=== PATIENT | female | born 1990 | race American Indian/Alaskan Native ===

== ENCOUNTER 2017-12-17 19:49 | Emergency (ER) | payer MEDICAID, OTHER ==
[2017-12-17 20:53] LABS: Basophils # (Auto) 0.1 K/mm3 (0.0-0.1); Basophils % (Auto) 0.7 % (0.0-1.8); Eosinophils # (Auto) 0.1 K/mm3 (0.0-0.4); Eosinophils % (Auto) 1.6 % (0.0-4.3); Hematocrit 37.1 % (30.3-42.9); Hemoglobin 12.2 gm/dl (10.1-14.3); Lymphocytes # (Auto) 2.3 K/mm3 (1.2-5.4); Lymphocytes % (Auto) 25.8 % (13.4-35.0); Mean Corpuscular HGB Conc 33 % (30-34); Mean Corpuscular Hemoglobin 29 pg (28-32); Mean Corpuscular Volume 87 fl (79-97); Monocytes # (Auto) 0.7 K/mm3 (0.0-0.8); Monocytes % (Auto) 8.1 % (0.0-7.3); Platelet Count 285 K/mm3 (140-440); Red Blood Count 4.27 M/mm3 (3.65-5.03); Red Cell Distribution Width 12.9 % (13.2-15.2)
[2017-12-17 21:08] LABS: Alanine Aminotransferase 12 units/L (7-56); Albumin 3.6 g/dL (3.9-5); BUN/Creatinine Ratio 12; Blood Urea Nitrogen 6 mg/dL (7-17); Calcium 8.8 mg/dL (8.4-10.2); Hemolysis Index 3
[2017-12-17 21:35] LABS: Bilirubin,Urine NEG (Negative); Blood,Urine MOD (Negative); Color,Urine Yellow (Yellow); Mucus,Urine FEW /HPF; Nitrite,Urine NEG (Negative); Protein,Urine <15 mg/dL mg/dL (Negative)
[2017-12-17] MEDS ORDERED: TYLENOL PO ONE (23:21)
--- NOTE | 2017-12-17 23:30 | Emergency Department Report ---
HPI - General Chief Complaint: Abdominal Pain Time Seen by Provider: 12/17/17 23:16 - HPI HPI: Room 4 The patient is a 27-year-old female presenting with a chief complaint lower abdominal pain. The patient states she is approximately 8 weeks and has not yet had an ultrasound for this . The patient states 2 days ago she developed pain in the lower abdomen/pelvis there is been constant. Patient states the pain worsened last night and was advised to come to the emergency department for evaluation. Patient states the pain is worse on the right. Patient denies vaginal bleeding, fever, dysuria or hematuria. Patient denies anorexia Location: [See above] Duration: 3 days Quality: Pain Severity: Moderate Modifying factors: [see above] Context: [see above] Mode of transportation: [not driving] ED Past Medical Hx - Past Medical History Previous Medical History?: No - Surgical History Past Surgical History?: No - Family History Family history: no significant - Social History Smoking Status: Never Smoker Substance Use Type: None (denies illicit drug use), Alcohol (occasional) - Medications Home Medications: Home Medications Medication Instructions Recorded Confirmed Last Taken Type Ferrous Sulfate [Feosol 325 MG tab] 325 mg PO BID #60 tablet 02/16/14 Unknown Rx Ibuprofen [Motrin 600 MG tab] 800 mg PO Q6H PRN #30 tablet 02/16/14 Unknown Rx Prenat 115/Iron Fum/Folic/Dss 1 each PO DAILY #30 tablet 02/16/14 Unknown Rx [ 19 Tablet] ED Review of Systems ROS: Stated complaint: ABD PAIN; 8WKS GEST Other details as noted in HPI Constitutional: denies: fever Gastrointestinal: abdominal pain Genitourinary: denies: dysuria, hematuria, abnormal menses Physical Exam - Physical Exam Vital Signs: Vital Signs 12/17/17 12/17/17 20:31 23:19 Temperature 98.9 F 98.6 F Pulse Rate 70 75 Respiratory 18 17 Rate Blood Pressure 133/75 Blood Pressure 123/88 [Left] O2 Sat by Pulse 100 99 Oximetry Physical Exam: GENERAL: The patient is well-developed well-nourished female lying on stretcher not appearing to be in acute distress. [] HEENT: Normocephalic. Atraumatic. Extraocular motions are intact. Patient has moist mucous membranes. NECK: Supple. Trachea midline CHEST/LUNGS: Clear to auscultation. There is no respiratory distress noted. HEART/CARDIOVASCULAR: Regular. There is no tachycardia. There is no gallop rub or murmur. ABDOMEN: Abdomen is soft, with discomfort to palpation in the right lower quadrant, suprapubic and left lower quadrant. Patient has normal bowel sounds. There is no abdominal distention. SKIN: There is no rash. There is no edema. There is no diaphoresis. NEURO: The patient is awake, alert, and oriented. The patient is cooperative. The patient has normal speech MUSCULOSKELETAL: There is no evidence of acute injury. ED Course Vital Signs 12/17/17 12/17/17 20:31 23:19 Temperature 98.9 F 98.6 F Pulse Rate 70 75 Respiratory 18 17 Rate Blood Pressure 133/75 Blood Pressure 123/88 [Left] O2 Sat by Pulse 100 99 Oximetry ED Medical Decision Making - Lab Data Result diagrams: 12/17/17 20:45 12/17/17 20:45 Laboratory Tests 12/17/17 12/17/17 12/17/17 20:44 20:45 20:45 WBC 8.8 RBC 4.27 Hgb 12.2 Hct 37.1 MCV 87 MCH 29 MCHC 33 RDW 12.9 L Plt Count 285 Lymph % (Auto) 25.8 [place] % (Auto) 8.1 H Eos % (Auto) 1.6 Baso % (Auto) 0.7 Lymph # 2.3 [place] # 0.7 Eos # 0.1 Baso # 0.1 Seg Neutrophils % 63.8 Seg Neutrophils # 5.6 Sodium 137 Potassium 4.0 Chloride 101.9 Carbon Dioxide 22 Anion Gap 17 BUN 6 L Creatinine 0.5 L Estimated GFR > 60 BUN/Creatinine Ratio 12 Glucose 76 Calcium 8.8 Total Bilirubin < 0.20 AST 12 ALT 12 Alkaline Phosphatase 43 Total Protein 7.2 Albumin 3.6 L Albumin/Globulin Ratio 1.0 HCG, Quant 49654 H Urine Color Urine Turbidity Urine pH Ur Specific [place] Urine Protein Urine Glucose (UA) Urine Ketones Urine Blood Urine Nitrite Urine Bilirubin Urine Urobilinogen Ur Leukocyte Esterase Urine WBC (Auto) Urine RBC (Auto) U Epithel Cells (Auto) Urine Mucus 12/17/17 21:12 WBC RBC Hgb Hct MCV MCH MCHC RDW Plt Count Lymph % (Auto) [place] % (Auto) Eos % (Auto) Baso % (Auto) Lymph # [place] # Eos # Baso # Seg Neutrophils % Seg Neutrophils # Sodium Potassium Chloride Carbon Dioxide Anion Gap BUN Creatinine Estimated GFR BUN/Creatinine Ratio Glucose Calcium Total Bilirubin AST ALT Alkaline Phosphatase Total Protein Albumin Albumin/Globulin Ratio HCG, Quant Urine Color Yellow Urine Turbidity Clear Urine pH 5.0 Ur Specific [place] 1.026 Urine Protein <15 mg/dl Urine Glucose (UA) Neg Urine Ketones Neg Urine Blood Mod Urine Nitrite Neg Urine Bilirubin Neg Urine Urobilinogen 2.0 Ur Leukocyte Esterase Neg Urine WBC (Auto) 2.0 Urine RBC (Auto) 7.0 U Epithel Cells (Auto) < 1.0 Urine Mucus Few - Radiology Data Radiology results: report reviewed (pelvic ultrasound), image reviewed (pelvic ultrasound) FINAL REPORT PROCEDURE: US OB TRANSVAGINAL TECHNIQUE: Real-time transvaginal sonography of the uterus, placenta, amniotic fluid, adnexa, and fetus was performed with image documentation. Measurements were obtained to determine age/size. M-mode Doppler was used to document heartbeat. CPT 59186 HISTORY: COMPARISON: No prior studies are available for comparison. FINDINGS: CRL: 14.1mm, which corresponds to a gestational age of: 7weeks, 5 days. Yolk Sac: Normal. Embryonic Cardiac Activity: 151 beats per minute Gestational Sac: Normal. There is a subchorionic hematoma measuring 6 x 11 x 9 millimeters. Right Ovary: Normal. Left Ovary: There is a complex cyst measuring 6.1 centimeters. There is a simple cyst measuring 2.9 centimeters. Estimated delivery date: 07/31/2018 Comment: Complete anatomic survey at 18-20 weeks suggested. IMPRESSION: 1. Single living intrauterine gestation at approximately 7 weeks and 5 days 2. EDC by US 07/31/2018. 3. There is a complex possibly hemorrhagic corpus luteal cyst in the left ovary measuring 6.1 centimeters. 4. There is a subchorionic hematoma measuring 6 x 11 x 9 millimeters. Transcribed By: CO Dictated By: BRENTON DAVENPORT MD Electronically Authenticated By: BRENTON DAVENPORT MD Signed Date/Time: 12/17/172117 DD/ 17 TD/TT: 12/17/172117 - Differential Diagnosis ectopic , threatened , UTI, round ligament pain Critical care attestation.: If time is entered above; I have spent that time in minutes in the direct care of this critically ill patient, excluding procedure time. ED Disposition Clinical Impression: Abdominal pain, Ovarian cyst, Subchorionic hematoma in first trimester Disposition: TO HOME OR SELFCARE Is pt being admited?: No Does the pt Need Aspirin: No Condition: Stable Instructions: Abdominal Pain (ED) Additional Instructions: Return to the emergency department immediately should you develop worsening symptoms, fever, inability to tolerate food or liquid or any other concerns. Referrals: [facility] [Primary Care Provider] - 3-5 Days [facility] [place] [Provider Group] - 3-5 Days Time of Disposition: 01:26
--- NOTE | 2017-12-18 01:22 | Ultrasound Report ---
FINAL REPORT PROCEDURE: US OB TRANSVAGINAL TECHNIQUE: Real-time transvaginal sonography of the uterus, placenta, amniotic fluid, adnexa, and fetus was performed with image documentation. Measurements were obtained to determine age/size. M-mode Doppler was used to document heartbeat. CPT 15623 HISTORY: COMPARISON: No prior studies are available for comparison. FINDINGS: CRL: 14.1mm, which corresponds to a gestational age of: 7weeks, 5 days. Yolk Sac: Normal. Embryonic Cardiac Activity: 151 beats per minute Gestational Sac: Normal. There is a subchorionic hematoma measuring 6 x 11 x 9 millimeters. Right Ovary: Normal. Left Ovary: There is a complex cyst measuring 6.1 centimeters. There is a simple cyst measuring 2.9 centimeters. Estimated delivery date: 07/31/2018 Comment: Complete anatomic survey at 18-20 weeks suggested. IMPRESSION: 1. Single living intrauterine gestation at approximately 7 weeks and 5 days 2. EDC by US 07/31/2018. 3. There is a complex possibly hemorrhagic corpus luteal cyst in the left ovary measuring 6.1 centimeters. 4. There is a subchorionic hematoma measuring 6 x 11 x 9 millimeters.
--- NOTE | 2017-12-18 01:28 | Ultrasound Report ---
FINAL REPORT PROCEDURE: US OB TRANSVAGINAL TECHNIQUE: Real-time transvaginal sonography of the uterus, placenta, amniotic fluid, adnexa, and fetus was performed with image documentation. Measurements were obtained to determine age/size. M-mode Doppler was used to document heartbeat. CPT 46957 HISTORY: COMPARISON: No prior studies are available for comparison. FINDINGS: FETUS B : CRL: 15.6mm, which corresponds to a gestational age of: 7weeks, 5 days. Yolk Sac: Normal. Embryonic Cardiac Activity: 160 beats per minute. Gestational Sac: Normal. There is a subchorionic hematoma measuring 6 x 11 x 9 millimeters. Right Ovary: Normal. Left Ovary: There is a complex cyst measuring 6.1 centimeters. There is a simple cyst measuring 2.9 centimeters. Estimated delivery date: 07/31/2018 Comment: Complete anatomic survey at 18-20 weeks suggested. IMPRESSION: 1. VIABLE intrauterine gestation at approximately 7 weeks and 5 days. THIS IS FETUS B OF A TWIN GESTATION. 2. EDC by US 07/31/2018. 3. There is a complex possibly hemorrhagic corpus luteal cyst in the left ovary measuring 6.1 centimeters. 4. There is a subchorionic hematoma measuring 6 x 11 x 9 millimeters.
--- NOTE | 2017-12-18 01:29 | Ultrasound Report ---
FINAL REPORT PROCEDURE: US OB LESS THAN 14 WEEKS TECHNIQUE: Real-time transabdominal sonography of the uterus, placenta, amniotic fluid, adnexa, and fetus was performed with image documentation. Measurements were obtained to determine age/size. M-mode Doppler was used to document heartbeat. HISTORY: COMPARISON: No prior studies are available for comparison. FINDINGS: CRL: 14.1mm, which corresponds to a gestational age of: 7weeks, 5 days. Yolk Sac: Normal. Embryonic Cardiac Activity: 151 beats per minute Gestational Sac: Normal. There is a subchorionic hematoma measuring 6 x 11 x 9 millimeters. Right Ovary: Normal. Left Ovary: There is a complex cyst measuring 6.1 centimeters. There is a simple cyst measuring 2.9 centimeters. Estimated delivery date: 07/31/2018 Comment: Complete anatomic survey at 18-20 weeks suggested. IMPRESSION: 1. Viable intrauterine gestation at approximately 7 weeks and 5 days. This is fetus A of a twin gestation. 2. EDC by US 07/31/2018. 3. There is a complex possibly hemorrhagic corpus luteal cyst in the left ovary measuring 6.1 centimeters. 4. There is a subchorionic hematoma measuring 6 x 11 x 9 millimeters.
[2017-12-18 01:30] VITALS: BP 118/76
== END 2017-12-18 01:38 | disposition home or self-care (01) ==
LOC: ED 19:49
DX: O26.891 Other specified pregnancy related conditions, first trimester (principal); Z3A.01 Less than 8 weeks gestation of pregnancy
CPT/HCPCS: 36415; 76801; 76802; 76817; 80053; 81001; 84702; 85025

== ENCOUNTER 2018-05-09 09:22 | Inpatient (IN) | payer MEDICAID ==
[2018-05-09] MEDS ORDERED: LACTATED RINGERS 500 ML IV ONE (09:37)
--- NOTE | 2018-05-09 11:23 | Ultrasound Report ---
FINAL REPORT EXAM: US OB > = 14 WK FETUS ADD GEST HISTORY: Bleeding, one demise twin TECHNIQUE: Transabdominal OB ultrasound. PRIORS: Earliest OB ultrasound December 17, 2017. FINDINGS: Twin intrauterine pregnancies. TWIN A: Intrauterine dates 20.4 weeks. JOSE equals September 22, 2018. EFW equals 431 g. BPD: 19.2 weeks. HC: 18.6 weeks. AC: 21.3 weeks. FL: 22.5 weeks. HC/AC ratio: 0.99 Cephalic index: 81.3. Within normal limits. Presentation: Left transverse. Placenta: Anterior. Grade 2. No previa. heart rate: No heart tones. Amniotic fluid index: Largest vertical pocket is 3.9 cm. Closed cervix measures 2.4 cm. TWIN B: Intrauterine dates 30.3 weeks. JOSE equals July 15, 2018. This is 16 days older compared to the prior ultrasound and is within normal limits for a 3rd trimester ultrasound. EFW equals 1496 g. BPD: 30.5 weeks. HC: 30.6 weeks. AC: 28.4 weeks. FL: 31.5 weeks. HC/AC ratio: 1.16 Cephalic index: 78.4. Within normal limits. Presentation: Cephalic. Placenta: Anterior. Grade 1. No previa. heart rate: 147 BPM. Amniotic fluid index: Largest vertical pocket is 7.1 cm. Closed cervix measures 2.4 cm. Visualized cord plexus, cisterna magnum, cerebellum, lateral ventricles, stomach, kidneys, bladder, diaphragm, four-chamber heart, and three-vessel cord is within normal limits. IMPRESSION: demise of twin A. Live of twin B.
[2018-05-09] MEDS ORDERED: SUDAFED PO PRN (12:26)
[2018-05-09] MEDS ORDERED: ZOFRAN IV PRN (12:26)
[2018-05-09] MEDS ORDERED: BENADRYL PO PRN (12:26)
[2018-05-09] MEDS ORDERED: MYLICON PO PRN (12:26)
[2018-05-09] MEDS ORDERED: TYLENOL PO PRN (12:26)
[2018-05-09] MEDS ORDERED: ALUM-MAG HYDROX-SIMETH 200-200-20MG/5ML PO PRN (12:26)
[2018-05-09] MEDS ORDERED: MILK OF MAGNESIA PO PRN (12:26)
[2018-05-09] MEDS ORDERED: COLACE PO PRN (12:26)
[2018-05-09] MEDS ORDERED: MAGNESIUM SULFATE 4GM/100ML 4 GM/100 ML BAG IV ONE (13:00)
[2018-05-09] MEDS ORDERED: CELESTONE SOLUSPAN IM SCH (13:00)
[2018-05-09] MEDS: LACTATED RINGERS 1,000 ML IV SCH ×2 (14:25→22:50)
[2018-05-09] MEDS: MAGNESIUM SULFATE 40GM/1000ML 40 GM/1,000 ML BAG IV SCH (14:46)
--- NOTE | 2018-05-09 15:16 | History and Physical Report ---
History of Present Illness Date of examination: 05/09/18 Date of admission: 05/09/18 13:41 Chief complaint: Vaginal spotting History of present illness: This is a 27 year-old female. She was diagnosed with IUFD of twin A (female on 04/13/18) two days prior to her first office visit. She has had no complaints until today when she call stating she's notice a brown discharge yesterday that became increasingly worse through out the day and this am. US confirmed today confirms IUFD twin A however CL today 2.4cm today. She was evaluated at [facility] on 04/22/2018, at that time her CL was 3.74cm. She's admitted now for Celestone administration and MGSO4 for possible PTL Past History : 4 Term Births: 3 Premature Births: 0 Living Children: 3 Para: 2 Mult. Births: 0 Prev : 0 Prev. attempt? 0 Aborta: 0 Elect. Ab: 0 Spont. Ab: 0 Ectopics: 0 # 1 Delivery date: 10/06/2008 Weeks Gestation: 40 labor: no Delivery type: Anesthesia type: epidural Delivery location: [facility] Infant Sex: Male weight: 8-0 # 2 Delivery date: 2011 Weeks Gestation: 40 Delivery type: Delivery location: [facility] Infant Sex: Female weight: 7-4 # 3 Delivery date: 02/15/2014 Weeks Gestation: 38.5 Delivery type: Vaginal Anesthesia type: none Delivery location: [facility] Sex: female weight: 7.69 Comments: none Past Medical History: Reviewed history from 11/28/2011 and no changes required: no hx of dvt while taking ocp Negative Past Medical History Past Surgical History: Reviewed history from 12/20/2008 and no changes required: negative Past Medical History Abnormal PAP: negative EMILIANA Exposure: negative Infertility: negative Uterine Anomaly: negative Uterine Surgery (not C/S): negative Other Gynecologic Problems: negative Social Hx: Patient is single non smoker Infection History Hx of STD: none Varicella/Chicken Pox Status: Previous Disease Genetic History Congenital Heart Defect: Mom: no Dad: no Aurelia Disease: Mom: no Dad: no Thalassemia Mom: no Dad: no Neural Tube Defect Mom: no Dad: no Down's Syndrome Mom: no Dad: no Ermias-Sachs Mom: no Dad: no Sickle Cell Disease/Trait Mom: no Dad: no Hemophilia Mom: no Dad: no Muscular Dystrophy Mom: no Dad: no Cystic Fibrosis Mom: no Dad: no Aye Chorea Mom: no Dad: no Mental Retardation Mom: no Dad: no Fragile X Mom: no Dad: no Other Genetic/Chromosomal Disorder Mom: no Dad: no Child w/other defect Mom: no Dad: no Enviromental Exposures Xray Exposure: no Medication, drug, or alcohol use since LMP: no Chemical/Other Exposure: no Exposure to Cat Liter: no Hx of Parvovirus (Fifth Disease): no Occupational Exposure to Children: none Active Medications (reviewed today): PROMETHAZINE HCL 12.5 MG ORAL TABLET (PROMETHAZINE HCL) 1 tab PO q 6 hrs prn nausea SELECT-OB 29-1 MG ORAL TABLET CHEWABLE ( VIT-FE PSAC CMPLX-FA) 1 tab PO q daily PRE-MITCH TABS ( [id number]) T1 PO QD ZOFRAN ODT 8 MG ORAL TABLET DISINTEGRATING (ONDANSETRON) 1 po q12hrs prn Current Allergies (reviewed today): * NKDA (Critical) Past History - Obstetrical History Expected Date of Delivery: 08/02/18 Actual Gestation: 27 Week(s) 6 Day(s) : 4 Medications and Allergies Allergies Allergy/AdvReac Type Severity Reaction Status Date / Time No Known Allergies Allergy Verified 02/15/14 06:06 Home Medications Medication Instructions Recorded Confirmed Last Taken Type Ferrous Sulfate [Feosol 325 MG tab] 325 mg PO BID #60 tablet 02/16/14 Unknown Rx Ibuprofen [Motrin 600 MG tab] 800 mg PO Q6H PRN #30 tablet 02/16/14 Unknown Rx Prenat 115/Iron Fum/Folic/Dss 1 each PO DAILY #30 tablet 02/16/14 Unknown Rx [ 19 Tablet] Active Meds: Active Medications Acetaminophen (Tylenol) 650 mg PO Q6H PRN PRN Reason: Pain MILD(1-3)/Fever >100.5/FREITAS Al Hydrox/Mg Hydrox/Simethicone (Alum-Mag Hydrox-Simeth [phone]/5ml) 30 ml PO Q6H PRN PRN Reason: Indigestion Betamethasone Acet/Betameth SodPhos (Celestone Soluspan) 12 mg IM Q24H TIM Stop: 07/15/18 13:01 Last Admin: 05/09/18 14:28 Dose: 12 mg Diphenhydramine HCl (Benadryl) 25 mg PO Q6H PRN PRN Reason: Itching Docusate Sodium (Colace) 100 mg PO Q12H PRN PRN Reason: Constipation Lactated Ringer's (Lactated Ringers) 1,000 mls @ 125 mls/hr IV DIRECT TIM Last Admin: 05/09/18 14:25 Dose: 125 mls/hr Magnesium Sulfate (Magnesium Sulfate 40gm/1000ml) 40 gm in 1,000 mls @ 50 mls/ hr IV DIRECT TIM Last Admin: 05/09/18 14:46 Dose: 2 gm/hr, 50 mls/hr Magnesium Hydroxide (Milk Of Magnesia) 30 ml PO QHS PRN PRN Reason: Laxative Effect Multivitamins/Iron/Calcium ( Vitamin) 1 each PO QDAY TIM Ondansetron HCl (Zofran) 4 mg IV Q6H PRN PRN Reason: Nausea And Vomiting Pseudoephedrine HCl (Sudafed) 30 mg PO Q4H PRN PRN Reason: Nasal Congestion Simethicone (Mylicon) 80 mg PO Q6H PRN PRN Reason: Gas pain Zolpidem Tartrate (Ambien) 5 mg PO ONCE ONE Stop: 05/09/18 22:01 Review of Systems All systems: negative Genitourinary: vaginal bleeding, vaginal discharge - Vital Signs Vital signs: Vital Signs Pulse BP 84 113/72 05/09/18 10:54 05/09/18 10:54 Temp Pulse Resp BP Pulse Ox 98.2 F 86 16 109/59 05/09/18 14:29 05/09/18 15:15 05/09/18 14:29 05/09/18 15:15 - Physical Exam Breasts: Positive: deferred Lungs: Positive: Normal air movement Abdomen: Positive: normal appearance, soft. Negative: tenderness - Obstetrical FHR: category 1 Results All other labs normal. Ultrasound: report reviewed Assessment and Plan - Patient Problems (1) 27 weeks gestation of Current Visit: Yes Status: Acute (2) Twin dichorionic diamniotic placenta Current Visit: Yes Status: Acute Plan to address problem: IUFD twin A (3) Cervical shortening Current Visit: Yes Status: Acute Qualifiers: Trimester: third trimester Qualified Code(s): O26.873 - Cervical shortening , third trimester Plan to address problem: Will proceed with Celestone and MgSO4. Plan of care discussed, questions encouraged and answered, she voiced understanding and agrees with plan of care
[2018-05-09 17:35] LABS: Hematocrit 35.5 % (30.3-42.9); Hemoglobin 11.8 gm/dl (10.1-14.3); Mean Corpuscular HGB Conc 33 % (30-34); Mean Corpuscular Hemoglobin 29 pg (28-32); Mean Corpuscular Volume 87 fl (79-97); Platelet Count 245 K/mm3 (140-440); Red Blood Count 4.09 M/mm3 (3.65-5.03); Red Cell Distribution Width 13.6 % (13.2-15.2)
[2018-05-09] MEDS ORDERED: AMBIEN PO ONE (22:00)
--- NOTE | 2018-05-10 08:59 | Progress Note ---
Assessment and Plan Complete celestone course, 2nd dose due at 1400 D/c MgSO4 ~24hours after last Celestone dose Plan of care extensively discussed with patient and her . Questions encouraged and answered. They both voiced understanding and agrees with plan - Patient Problems (1) 28 weeks gestation of Current Visit: Yes Status: Acute (2) Twin dichorionic diamniotic placenta Current Visit: Yes Status: Acute (3) Cervical shortening Current Visit: Yes Status: Acute Qualifiers: Trimester: third trimester Qualified Code(s): O26.873 - Cervical shortening , third trimester (4) Vaginal bleeding during , antepartum Current Visit: Yes Status: Acute Subjective - Subjective Date of service: 05/10/18 Principal diagnosis: IUP@28weeks,short cervix, twin gestation, IUFD twin A Interval history: Doing well, still with slight brown discharge, occasional contraction Patient reports: movement normal, contractions, no loss of fluid Objective - Vital Signs Vital Signs: Vital Signs - 12hr 05/09/18 05/09/18 05/09/18 21:00 21:05 21:10 Temperature Pulse Rate 75 78 74 Respiratory Rate Blood Pressure 115/63 Blood Pressure [Right] O2 Sat by Pulse 100 100 100 Oximetry 05/09/18 05/09/18 05/09/18 21:15 21:20 21:25 Temperature Pulse Rate 76 75 79 Respiratory Rate Blood Pressure 110/70 Blood Pressure [Right] O2 Sat by Pulse 98 99 99 Oximetry 05/09/18 05/09/18 05/09/18 21:30 21:35 21:40 Temperature Pulse Rate 86 79 99 H Respiratory Rate Blood Pressure 114/72 Blood Pressure [Right] O2 Sat by Pulse 100 100 98 Oximetry 05/09/18 05/09/18 05/09/18 21:45 21:46 21:50 Temperature Pulse Rate 102 H 88 90 Respiratory Rate Blood Pressure 126/71 Blood Pressure [Right] O2 Sat by Pulse 100 100 Oximetry 05/09/18 05/09/18 05/09/18 21:55 22:00 22:05 Temperature Pulse Rate 92 H 82 81 Respiratory Rate Blood Pressure 115/63 Blood Pressure [Right] O2 Sat by Pulse 100 98 99 Oximetry 05/09/18 05/09/18 05/09/18 22:10 22:15 22:16 Temperature Pulse Rate 92 H 78 85 Respiratory Rate Blood Pressure 117/67 Blood Pressure [Right] O2 Sat by Pulse 99 98 Oximetry 05/09/18 05/09/18 05/09/18 22:20 22:25 22:30 Temperature Pulse Rate 85 88 75 Respiratory Rate Blood Pressure 110/62 Blood Pressure [Right] O2 Sat by Pulse 98 99 0 L Oximetry 05/09/18 05/09/18 05/09/18 22:35 22:40 22:45 Temperature Pulse Rate 75 86 74 Respiratory Rate Blood Pressure 118/72 Blood Pressure [Right] O2 Sat by Pulse 100 99 100 Oximetry 05/09/18 05/09/18 05/09/18 22:50 22:55 23:00 Temperature 98.3 F Pulse Rate 79 84 76 Respiratory 18 Rate Blood Pressure 116/68 Blood Pressure 103/57 [Right] O2 Sat by Pulse 98 99 99 Oximetry 05/09/18 05/09/18 05/09/18 23:05 23:10 23:15 Temperature Pulse Rate 74 76 76 Respiratory Rate Blood Pressure 103/57 Blood Pressure [Right] O2 Sat by Pulse 99 99 98 Oximetry 05/09/18 05/09/18 05/09/18 23:20 23:25 23:30 Temperature Pulse Rate 79 76 70 Respiratory Rate Blood Pressure 107/55 Blood Pressure [Right] O2 Sat by Pulse 98 98 97 Oximetry 05/09/18 05/09/18 05/09/18 23:35 23:40 23:45 Temperature Pulse Rate 74 76 78 Respiratory Rate Blood Pressure 115/70 Blood Pressure [Right] O2 Sat by Pulse 97 96 97 Oximetry 05/09/18 05/09/18 05/10/18 23:50 23:55 00:00 Temperature Pulse Rate 82 85 81 Respiratory Rate Blood Pressure 112/65 Blood Pressure [Right] O2 Sat by Pulse 97 97 97 Oximetry 05/10/18 05/10/18 05/10/18 00:05 00:10 00:15 Temperature Pulse Rate 79 82 77 Respiratory Rate Blood Pressure 116/70 Blood Pressure [Right] O2 Sat by Pulse 98 99 99 Oximetry 05/10/18 05/10/18 05/10/18 00:20 00:25 00:30 Temperature Pulse Rate 84 82 79 Respiratory Rate Blood Pressure 116/72 Blood Pressure [Right] O2 Sat by Pulse 99 99 99 Oximetry 05/10/18 05/10/18 05/10/18 00:35 00:40 00:45 Temperature Pulse Rate 74 89 78 Respiratory Rate Blood Pressure 121/72 Blood Pressure [Right] O2 Sat by Pulse 100 98 98 Oximetry 05/10/18 05/10/18 05/10/18 00:50 00:55 01:00 Temperature Pulse Rate 76 72 Respiratory Rate Blood Pressure 123/66 Blood Pressure [Right] O2 Sat by Pulse 98 97 Oximetry 05/10/18 05/10/18 05/10/18 01:20 01:25 01:30 Temperature Pulse Rate 73 77 69 Respiratory Rate Blood Pressure 115/63 Blood Pressure [Right] O2 Sat by Pulse 98 97 98 Oximetry 05/10/18 05/10/18 05/10/18 01:35 01:40 01:45 Temperature Pulse Rate 76 87 74 Respiratory Rate Blood Pressure 119/65 Blood Pressure [Right] O2 Sat by Pulse 98 98 98 Oximetry 05/10/18 05/10/18 05/10/18 01:50 01:55 02:00 Temperature Pulse Rate 76 78 73 Respiratory Rate Blood Pressure 115/60 Blood Pressure [Right] O2 Sat by Pulse 98 97 97 Oximetry 05/10/18 05/10/18 05/10/18 02:05 02:10 02:15 Temperature Pulse Rate 74 73 73 Respiratory Rate Blood Pressure 120/68 Blood Pressure [Right] O2 Sat by Pulse 99 98 Oximetry 05/10/18 05/10/18 05/10/18 02:16 02:21 02:25 Temperature Pulse Rate 76 85 81 Respiratory Rate Blood Pressure Blood Pressure [Right] O2 Sat by Pulse 98 96 94 Oximetry 05/10/18 05/10/18 05/10/18 02:26 02:29 02:31 Temperature Pulse Rate 78 82 80 Respiratory Rate Blood Pressure 129/70 Blood Pressure [Right] O2 Sat by Pulse 98 97 Oximetry 05/10/18 05/10/18 05/10/18 02:36 02:41 02:45 Temperature Pulse Rate 80 76 74 Respiratory Rate Blood Pressure 117/60 Blood Pressure [Right] O2 Sat by Pulse 96 97 Oximetry 05/10/18 05/10/18 05/10/18 02:46 02:51 02:56 Temperature Pulse Rate 73 75 76 Respiratory Rate Blood Pressure Blood Pressure [Right] O2 Sat by Pulse 97 97 97 Oximetry 05/10/18 05/10/18 05/10/18 02:59 03:01 03:06 Temperature Pulse Rate 74 77 76 Respiratory Rate Blood Pressure 115/58 Blood Pressure [Right] O2 Sat by Pulse 97 97 Oximetry 05/10/18 05/10/18 05/10/18 03:11 03:15 03:16 Temperature Pulse Rate 74 74 77 Respiratory Rate Blood Pressure 111/58 Blood Pressure [Right] O2 Sat by Pulse 96 96 Oximetry 05/10/18 05/10/18 05/10/18 03:21 03:26 03:30 Temperature Pulse Rate 77 75 75 Respiratory Rate Blood Pressure 105/59 Blood Pressure [Right] O2 Sat by Pulse 97 97 Oximetry 05/10/18 05/10/18 05/10/18 03:31 03:36 03:41 Temperature Pulse Rate 72 73 76 Respiratory Rate Blood Pressure Blood Pressure [Right] O2 Sat by Pulse 97 97 96 Oximetry 05/10/18 05/10/18 05/10/18 03:45 03:46 03:51 Temperature Pulse Rate 71 75 77 Respiratory Rate Blood Pressure 114/65 Blood Pressure [Right] O2 Sat by Pulse 96 97 Oximetry 05/10/18 05/10/18 05/10/18 03:56 03:59 04:01 Temperature Pulse Rate 75 75 79 Respiratory Rate Blood Pressure 113/61 Blood Pressure [Right] O2 Sat by Pulse 97 97 Oximetry 05/10/18 05/10/18 05/10/18 04:06 04:11 04:15 Temperature Pulse Rate 75 76 77 Respiratory Rate Blood Pressure 118/67 Blood Pressure [Right] O2 Sat by Pulse 97 97 Oximetry 05/10/18 05/10/18 05/10/18 04:16 04:21 04:26 Temperature Pulse Rate 80 77 73 Respiratory Rate Blood Pressure Blood Pressure [Right] O2 Sat by Pulse 96 98 98 Oximetry 05/10/18 05/10/18 05/10/18 04:30 04:31 04:36 Temperature Pulse Rate 74 71 78 Respiratory Rate Blood Pressure 118/66 Blood Pressure [Right] O2 Sat by Pulse 98 97 Oximetry 05/10/18 05/10/18 05/10/18 04:41 04:45 04:46 Temperature Pulse Rate 72 75 78 Respiratory Rate Blood Pressure 117/62 Blood Pressure [Right] O2 Sat by Pulse 97 97 Oximetry 05/10/18 05/10/18 05/10/18 04:51 04:56 05:00 Temperature Pulse Rate 77 77 72 Respiratory Rate Blood Pressure 116/60 Blood Pressure [Right] O2 Sat by Pulse 96 96 Oximetry 05/10/18 05/10/18 05/10/18 05:01 05:06 05:11 Temperature Pulse Rate 78 78 91 H Respiratory Rate Blood Pressure Blood Pressure [Right] O2 Sat by Pulse 96 96 96 Oximetry 05/10/18 05/10/18 05/10/18 05:15 05:16 05:21 Temperature Pulse Rate 87 83 84 Respiratory Rate Blood Pressure 113/59 Blood Pressure [Right] O2 Sat by Pulse 94 98 97 Oximetry 05/10/18 05/10/18 05/10/18 05:26 05:31 05:36 Temperature Pulse Rate 89 78 86 Respiratory Rate Blood Pressure Blood Pressure [Right] O2 Sat by Pulse 97 86 98 Oximetry 05/10/18 05/10/18 05/10/18 05:41 05:45 05:46 Temperature Pulse Rate 84 78 78 Respiratory Rate Blood Pressure 110/64 Blood Pressure [Right] O2 Sat by Pulse 98 91 98 Oximetry 05/10/18 05/10/18 05/10/18 05:51 05:56 06:00 Temperature Pulse Rate 83 76 70 Respiratory Rate Blood Pressure 107/58 Blood Pressure [Right] O2 Sat by Pulse 99 98 Oximetry 05/10/18 05/10/18 05/10/18 06:01 06:06 06:11 Temperature Pulse Rate 71 67 75 Respiratory Rate Blood Pressure Blood Pressure [Right] O2 Sat by Pulse 99 99 98 Oximetry 05/10/18 05/10/18 05/10/18 06:15 06:16 06:21 Temperature Pulse Rate 86 77 78 Respiratory Rate Blood Pressure 142/61 Blood Pressure [Right] O2 Sat by Pulse 99 97 Oximetry 05/10/18 05/10/18 05/10/18 06:26 06:30 06:31 Temperature Pulse Rate 72 76 74 Respiratory Rate Blood Pressure 119/58 Blood Pressure [Right] O2 Sat by Pulse 97 97 Oximetry 05/10/18 05/10/18 05/10/18 06:36 06:41 06:45 Temperature Pulse Rate 77 75 75 Respiratory Rate Blood Pressure 113/57 Blood Pressure [Right] O2 Sat by Pulse 97 97 Oximetry 05/10/18 05/10/18 05/10/18 06:46 06:51 06:56 Temperature Pulse Rate 75 68 77 Respiratory Rate Blood Pressure Blood Pressure [Right] O2 Sat by Pulse 97 97 100 Oximetry 05/10/18 05/10/18 05/10/18 07:00 07:01 07:06 Temperature Pulse Rate 80 84 81 Respiratory Rate Blood Pressure 122/69 Blood Pressure [Right] O2 Sat by Pulse 99 97 Oximetry 05/10/18 05/10/18 05/10/18 07:11 07:15 07:16 Temperature Pulse Rate 89 82 81 Respiratory Rate Blood Pressure 134/58 Blood Pressure [Right] O2 Sat by Pulse 100 97 Oximetry 05/10/18 05/10/18 05/10/18 07:21 07:26 07:30 Temperature Pulse Rate 81 76 76 Respiratory Rate Blood Pressure 122/61 Blood Pressure [Right] O2 Sat by Pulse 98 98 Oximetry 05/10/18 05/10/18 05/10/18 07:31 07:36 07:41 Temperature Pulse Rate 75 88 86 Respiratory Rate Blood Pressure Blood Pressure [Right] O2 Sat by Pulse 100 100 99 Oximetry 05/10/18 05/10/18 05/10/18 07:46 07:51 07:56 Temperature Pulse Rate 75 75 75 Respiratory Rate Blood Pressure 125/69 Blood Pressure [Right] O2 Sat by Pulse 100 99 99 Oximetry 05/10/18 05/10/18 05/10/18 08:00 08:01 08:06 Temperature Pulse Rate 77 79 85 Respiratory Rate Blood Pressure 126/68 Blood Pressure [Right] O2 Sat by Pulse 99 99 Oximetry 05/10/18 05/10/18 05/10/18 08:11 08:15 08:16 Temperature Pulse Rate 81 81 80 Respiratory Rate Blood Pressure 127/68 Blood Pressure [Right] O2 Sat by Pulse 100 100 Oximetry 05/10/18 05/10/18 05/10/18 08:21 08:26 08:30 Temperature Pulse Rate 74 71 75 Respiratory Rate Blood Pressure 131/73 Blood Pressure [Right] O2 Sat by Pulse 100 100 Oximetry 05/10/18 05/10/18 05/10/18 08:31 08:36 08:41 Temperature Pulse Rate 78 90 79 Respiratory Rate Blood Pressure Blood Pressure [Right] O2 Sat by Pulse 100 99 100 Oximetry 05/10/18 05/10/18 05/10/18 08:45 08:46 08:51 Temperature Pulse Rate 81 78 82 Respiratory Rate Blood Pressure 133/78 Blood Pressure [Right] O2 Sat by Pulse 99 100 Oximetry 05/10/18 08:56 Temperature Pulse Rate 92 H Respiratory Rate Blood Pressure Blood Pressure [Right] O2 Sat by Pulse 100 Oximetry - Exam Breasts: deferred Cardiovascular: Regular rate Lungs: Clear to auscultation, Normal air movement Abdomen: Present: normal appearance, soft. Absent: tenderness Uterus: Absent: tenderness FHR: category 1 Uterine Contraction Pattern: Absent Extremities: normal - Labs Labs: Abnormal Labs 05/09/18 05/10/18 05/10/18 17:20 00:02 07:30 Magnesium 3.70 H 4.60 H 5.10 H Laboratory Results - last 24 hr 05/09/18 05/09/18 05/09/18 13:56 17:20 17:20 WBC 10.0 RBC 4.09 Hgb 11.8 Hct 35.5 MCV 87 MCH 29 MCHC 33 RDW 13.6 Plt Count 245 Magnesium 3.70 H Blood Type O POSITIVE Antibody Screen Negative 05/10/18 05/10/18 00:02 07:30 WBC RBC Hgb Hct MCV MCH MCHC RDW Plt Count Magnesium 4.60 H 5.10 H Blood Type Antibody Screen
[2018-05-10] MEDS ORDERED: PRENATAL VITAMIN PO SCH (10:00)
[2018-05-10] MEDS: MAGNESIUM SULFATE 40GM/1000ML 40 GM/1,000 ML BAG IV SCH (11:35)
[2018-05-10] MEDS: LACTATED RINGERS 1,000 ML IV SCH (16:20)
[2018-05-10] MEDS ORDERED: CELESTONE SOLUSPAN IM ONE (16:20)
[2018-05-11] MEDS ORDERED: AMBIEN PO PRN (01:32)
--- NOTE | 2018-05-11 06:07 | Progress Note ---
Assessment and Plan Pt states she is "ready to go home". Will consult with Dr Roberto MERAZ FHR auscultation 140s Rare ctx < once an hour. Will d/c MGSO4 and martínez Allow AM care. Will monitor for any further vaginal spotting. Pt has appt with AMFM on and an OB appt on 05/26/18. Subjective - Subjective Date of service: 05/11/18 (pt requesting d/c if possible) Principal diagnosis: IUP@28weeks,short cervix, twin gestation, IUFD twin A Patient reports: movement normal, contractions (less frequent), no loss of fluid Objective - Vital Signs Vital Signs: Vital Signs - 12hr 05/10/18 05/10/18 05/10/18 18:06 18:11 18:16 Temperature Pulse Rate 92 H 94 H 95 H Respiratory Rate Blood Pressure Blood Pressure [Right] O2 Sat by Pulse 99 99 98 Oximetry 05/10/18 05/10/18 05/10/18 18:21 18:23 18:26 Temperature Pulse Rate 92 H 97 H Respiratory Rate Blood Pressure Blood Pressure 123/62 [Right] O2 Sat by Pulse 99 98 Oximetry 05/10/18 05/10/18 05/10/18 18:30 18:31 18:36 Temperature Pulse Rate 94 H 91 H 91 H Respiratory Rate Blood Pressure 126/61 Blood Pressure [Right] O2 Sat by Pulse 99 98 Oximetry 05/10/18 05/10/18 05/10/18 18:41 18:46 18:51 Temperature Pulse Rate 93 H 90 91 H Respiratory Rate Blood Pressure Blood Pressure [Right] O2 Sat by Pulse 98 98 99 Oximetry 05/10/18 05/10/18 05/10/18 18:56 19:01 19:06 Temperature Pulse Rate 97 H 96 H 98 H Respiratory Rate Blood Pressure Blood Pressure [Right] O2 Sat by Pulse 98 97 98 Oximetry 05/10/18 05/10/18 05/10/18 19:11 19:16 19:21 Temperature Pulse Rate 86 89 87 Respiratory Rate Blood Pressure Blood Pressure [Right] O2 Sat by Pulse 97 98 98 Oximetry 05/10/18 05/10/18 05/10/18 19:26 19:30 19:31 Temperature Pulse Rate 87 86 87 Respiratory Rate Blood Pressure 119/66 Blood Pressure [Right] O2 Sat by Pulse 98 98 Oximetry 05/10/18 05/10/18 05/10/18 19:36 19:41 19:46 Temperature Pulse Rate 95 H 89 89 Respiratory Rate Blood Pressure Blood Pressure [Right] O2 Sat by Pulse 98 98 97 Oximetry 05/10/18 05/10/18 05/10/18 19:50 19:51 19:56 Temperature 98.4 F Pulse Rate 92 H 82 86 Respiratory 18 Rate Blood Pressure Blood Pressure 119/66 [Right] O2 Sat by Pulse 98 98 Oximetry 05/10/18 05/10/18 05/10/18 20:01 20:06 20:11 Temperature Pulse Rate 85 87 89 Respiratory Rate Blood Pressure Blood Pressure [Right] O2 Sat by Pulse 98 98 97 Oximetry 05/10/18 05/10/18 05/10/18 20:16 20:21 20:26 Temperature Pulse Rate 85 87 87 Respiratory Rate Blood Pressure Blood Pressure [Right] O2 Sat by Pulse 98 98 99 Oximetry 05/10/18 05/10/18 05/10/18 20:30 20:31 20:36 Temperature Pulse Rate 82 81 90 Respiratory Rate Blood Pressure 116/66 Blood Pressure [Right] O2 Sat by Pulse 98 98 Oximetry 05/10/18 05/10/18 05/10/18 20:41 20:46 20:51 Temperature Pulse Rate 88 89 92 H Respiratory Rate Blood Pressure Blood Pressure [Right] O2 Sat by Pulse 98 98 98 Oximetry 05/10/18 05/10/18 05/10/18 20:56 21:01 21:06 Temperature Pulse Rate 88 88 88 Respiratory Rate Blood Pressure Blood Pressure [Right] O2 Sat by Pulse 98 97 98 Oximetry 05/10/18 05/10/18 05/10/18 21:11 21:16 21:21 Temperature Pulse Rate 86 85 106 H Respiratory Rate Blood Pressure Blood Pressure [Right] O2 Sat by Pulse 97 97 96 Oximetry 05/10/18 05/10/18 05/10/18 21:26 21:30 21:31 Temperature Pulse Rate 85 79 89 Respiratory Rate Blood Pressure 104/59 Blood Pressure [Right] O2 Sat by Pulse 96 96 Oximetry 05/10/18 05/10/18 05/10/18 21:36 21:41 21:46 Temperature Pulse Rate 85 90 98 H Respiratory Rate Blood Pressure Blood Pressure [Right] O2 Sat by Pulse 97 98 97 Oximetry 05/10/18 05/10/18 05/10/18 21:51 21:56 22:01 Temperature Pulse Rate 93 H 85 87 Respiratory Rate Blood Pressure Blood Pressure [Right] O2 Sat by Pulse 98 99 97 Oximetry 05/10/18 05/10/18 05/10/18 22:06 22:11 22:16 Temperature Pulse Rate 89 89 83 Respiratory Rate Blood Pressure Blood Pressure [Right] O2 Sat by Pulse 97 97 97 Oximetry 05/10/18 05/10/18 05/10/18 22:21 22:26 22:30 Temperature Pulse Rate 78 86 74 Respiratory Rate Blood Pressure 107/57 Blood Pressure [Right] O2 Sat by Pulse 97 97 Oximetry 05/10/18 05/10/18 05/10/18 22:31 22:36 22:41 Temperature Pulse Rate 77 78 77 Respiratory Rate Blood Pressure Blood Pressure [Right] O2 Sat by Pulse 97 96 96 Oximetry 05/10/18 05/10/18 05/10/18 22:46 22:51 22:56 Temperature Pulse Rate 80 82 87 Respiratory Rate Blood Pressure Blood Pressure [Right] O2 Sat by Pulse 96 96 98 Oximetry 05/10/18 05/10/18 05/10/18 22:57 23:01 23:06 Temperature Pulse Rate 85 76 82 Respiratory Rate Blood Pressure Blood Pressure [Right] O2 Sat by Pulse 94 96 96 Oximetry 05/10/18 05/10/18 05/10/18 23:11 23:16 23:21 Temperature Pulse Rate 80 79 82 Respiratory Rate Blood Pressure Blood Pressure [Right] O2 Sat by Pulse 95 95 96 Oximetry 05/10/18 05/10/18 05/10/18 23:26 23:30 23:31 Temperature Pulse Rate 80 80 81 Respiratory Rate Blood Pressure 106/58 Blood Pressure [Right] O2 Sat by Pulse 96 94 96 Oximetry 05/10/18 05/10/18 05/10/18 23:36 23:41 23:46 Temperature Pulse Rate 81 78 79 Respiratory Rate Blood Pressure Blood Pressure [Right] O2 Sat by Pulse 96 96 95 Oximetry 05/10/18 05/10/18 05/11/18 23:51 23:56 00:01 Temperature Pulse Rate 80 92 H 71 Respiratory Rate Blood Pressure Blood Pressure [Right] O2 Sat by Pulse 95 96 96 Oximetry 05/11/18 05/11/18 05/11/18 00:06 00:11 00:16 Temperature Pulse Rate 81 88 93 H Respiratory Rate Blood Pressure Blood Pressure [Right] O2 Sat by Pulse 97 97 97 Oximetry 05/11/18 05/11/18 05/11/18 00:21 00:26 00:30 Temperature Pulse Rate 80 77 71 Respiratory Rate Blood Pressure 118/62 Blood Pressure [Right] O2 Sat by Pulse 98 96 Oximetry 05/11/18 05/11/18 05/11/18 00:31 00:36 00:41 Temperature Pulse Rate 80 77 79 Respiratory Rate Blood Pressure Blood Pressure [Right] O2 Sat by Pulse 98 98 97 Oximetry 05/11/18 05/11/18 05/11/18 00:46 00:51 00:56 Temperature Pulse Rate 74 86 75 Respiratory Rate Blood Pressure Blood Pressure [Right] O2 Sat by Pulse 97 97 97 Oximetry 05/11/18 05/11/18 05/11/18 01:16 01:21 01:26 Temperature Pulse Rate 69 71 87 Respiratory Rate Blood Pressure Blood Pressure [Right] O2 Sat by Pulse 99 98 98 Oximetry 05/11/18 05/11/18 05/11/18 01:31 01:36 01:41 Temperature Pulse Rate 84 76 72 Respiratory Rate Blood Pressure 107/80 Blood Pressure [Right] O2 Sat by Pulse 98 98 97 Oximetry 05/11/18 05/11/18 05/11/18 01:46 01:51 01:56 Temperature Pulse Rate 79 85 85 Respiratory Rate Blood Pressure Blood Pressure [Right] O2 Sat by Pulse 98 98 98 Oximetry 05/11/18 05/11/18 05/11/18 02:01 02:06 02:11 Temperature Pulse Rate 79 81 81 Respiratory Rate Blood Pressure Blood Pressure [Right] O2 Sat by Pulse 99 98 98 Oximetry 05/11/18 05/11/18 05/11/18 02:16 02:21 02:26 Temperature Pulse Rate 83 75 77 Respiratory Rate Blood Pressure Blood Pressure [Right] O2 Sat by Pulse 96 98 97 Oximetry 05/11/18 05/11/18 05/11/18 02:30 02:31 02:36 Temperature Pulse Rate 75 75 76 Respiratory Rate Blood Pressure 113/61 Blood Pressure [Right] O2 Sat by Pulse 97 97 Oximetry 05/11/18 05/11/18 05/11/18 02:41 02:46 02:51 Temperature Pulse Rate 72 79 74 Respiratory Rate Blood Pressure Blood Pressure [Right] O2 Sat by Pulse 98 96 96 Oximetry 05/11/18 05/11/18 05/11/18 02:56 03:01 03:06 Temperature Pulse Rate 78 77 79 Respiratory Rate Blood Pressure Blood Pressure [Right] O2 Sat by Pulse 96 96 96 Oximetry 05/11/18 05/11/18 05/11/18 03:11 03:16 03:21 Temperature Pulse Rate 77 79 79 Respiratory Rate Blood Pressure Blood Pressure [Right] O2 Sat by Pulse 96 96 95 Oximetry 05/11/18 05/11/18 05/11/18 03:26 03:30 03:31 Temperature Pulse Rate 78 79 79 Respiratory Rate Blood Pressure 115/59 Blood Pressure [Right] O2 Sat by Pulse 96 96 Oximetry 05/11/18 05/11/18 05/11/18 03:35 03:36 03:41 Temperature Pulse Rate 98 H 87 79 Respiratory Rate Blood Pressure Blood Pressure [Right] O2 Sat by Pulse 92 97 96 Oximetry 05/11/18 05/11/18 05/11/18 03:46 03:47 03:51 Temperature Pulse Rate 78 92 H 85 Respiratory Rate Blood Pressure Blood Pressure [Right] O2 Sat by Pulse 96 93 95 Oximetry 05/11/18 05/11/18 05/11/18 03:56 04:01 04:06 Temperature Pulse Rate 84 79 77 Respiratory Rate Blood Pressure Blood Pressure [Right] O2 Sat by Pulse 96 96 96 Oximetry 05/11/18 05/11/18 05/11/18 04:11 04:16 04:21 Temperature Pulse Rate 77 78 76 Respiratory Rate Blood Pressure Blood Pressure [Right] O2 Sat by Pulse 96 97 96 Oximetry 05/11/18 05/11/18 05/11/18 04:26 04:30 04:31 Temperature Pulse Rate 75 67 71 Respiratory Rate Blood Pressure 107/58 Blood Pressure [Right] O2 Sat by Pulse 97 97 Oximetry 05/11/18 05/11/18 05/11/18 04:36 04:41 04:46 Temperature Pulse Rate 71 75 76 Respiratory Rate Blood Pressure Blood Pressure [Right] O2 Sat by Pulse 97 97 97 Oximetry 05/11/18 05/11/18 05/11/18 04:51 04:56 05:01 Temperature Pulse Rate 77 78 79 Respiratory Rate Blood Pressure Blood Pressure [Right] O2 Sat by Pulse 97 97 97 Oximetry 05/11/18 05/11/18 05/11/18 05:06 05:11 05:16 Temperature Pulse Rate 79 79 73 Respiratory Rate Blood Pressure Blood Pressure [Right] O2 Sat by Pulse 97 97 97 Oximetry 05/11/18 05/11/18 05/11/18 05:21 05:26 05:30 Temperature Pulse Rate 74 84 72 Respiratory Rate Blood Pressure 109/61 Blood Pressure [Right] O2 Sat by Pulse 97 95 Oximetry 05/11/18 05/11/18 05/11/18 05:31 05:36 05:41 Temperature Pulse Rate 72 80 99 H Respiratory Rate Blood Pressure Blood Pressure [Right] O2 Sat by Pulse 97 96 96 Oximetry 05/11/18 05/11/18 05/11/18 05:46 05:51 05:56 Temperature Pulse Rate 74 80 78 Respiratory Rate Blood Pressure Blood Pressure [Right] O2 Sat by Pulse 97 96 97 Oximetry 05/11/18 06:01 Temperature Pulse Rate 77 Respiratory Rate Blood Pressure Blood Pressure [Right] O2 Sat by Pulse 97 Oximetry - Exam Breasts: deferred Cardiovascular: Regular rate Lungs: Normal air movement Abdomen: Present: normal appearance, soft. Absent: distention, tenderness Uterus: Present: normal FHR: auscultation normal, category 1 Uterine Contraction Monitor Mode: External Uterine Tone Measurement Phase: Resting Extremities: normal Deep Tendon Reflex Grade: Normal +2 - Labs Labs: Abnormal Labs 05/09/18 05/10/18 05/10/18 17:20 00:02 07:30 Magnesium 3.70 H 4.60 H 5.10 H 05/10/18 05/10/18 05/10/18 14:15 20:11 23:50 Magnesium 4.70 H 4.50 H 4.70 H 05/11/18 04:00 Magnesium 4.70 H Laboratory Results - last 24 hr 05/10/18 05/10/18 05/10/18 07:30 14:15 20:11 Magnesium 5.10 H 4.70 H 4.50 H 05/10/18 05/11/18 23:50 04:00 Magnesium 4.70 H 4.70 H
--- NOTE | 2018-05-11 07:13 | Discharge Summary ---
Providers - Providers Date of Admission: 05/09/18 13:41 Date of discharge: 05/11/18 (pt desires d/c) Attending physician: JOHN GRAJEDA Primary care physician: JOHN GRAJEDA Hospitalization Reason for admission: spotting; short cervix Condition: Good Hospital course: Pt admitted for BMZ X 2 doses Pt responded well to therapy Pt states her spotting is only when she wipes. Will d/c home Complete vaginal rest. Appt with HARRY on 05-20-18 and in our office 05-26-18 consulted Disposition: DC-01 TO HOME OR SELFCARE - Discharge Diagnoses (1) 28 weeks gestation of Status: Acute (2) Cervical shortening Status: Acute Qualifiers: Trimester: third trimester Qualified Code(s): O26.873 - Cervical shortening , third trimester Core Measure Documentation - Palliative Care Palliative Care/ Comfort Measures: Not Applicable - Core Measures Any of the following diagnoses?: none - VTE Discharge Requirements Deep Vein Thrombosis/Pulmonary Embolism Present on Admission: No Has pt received <5 days of overlap therapy or INR<2.0: No Anticoagulant overlap therapy prescribed at discharge: No Contraindication No Overlap Therapy order at DC: Medical Contraindication - Acute [place] Discharge Requirements Aspirin at discharge: No Reason for no aspirin on DC: Medical contraindication KEVIN/ARB for LVSD if EF <40%: Not Applicable Reason for no KEVIN/ARB: Medical contraindication Beta caesar at discharge: No Reason for no beta caesar on DC: Medical contraindication Statin for LDL = or >100 mg/dl on DC: Not Applicable Reason for no statin on DC: Medical contraindication - Heart Failure Discharge Requirements KEVIN/ARB for LVSD if EF <40%: Not Applicable Reason for no KEVIN/ARB: Medical contraindication Beta caesar at discharge: No Reason for no beta caesar on DC: Medical contraindication - Stroke Discharge Requirements Statin for LDL = or >70 mg/dl on DC: Not Applicable Reason for no statin on DC: Not Indicated Anticoag for atrial fib/atrial flutter: Not Applicable Reason for no anticoag for AF/F on DC: Not Indicated Antithrombotic for ischemic stroke: No Reason for no antithrombotic on DC: Not Indicated Exam - Constitutional Vitals: Temp Pulse Resp BP Pulse Ox 98.4 F 81 18 109/61 98 05/10/18 19:50 05/11/18 06:21 05/10/18 19:50 05/11/18 05:30 05/11/18 06:21 General appearance: Present: no acute distress, well-nourished - EENT Eyes: Present: PERRL ENT: hearing intact, clear oral mucosa - Neck Neck: Present: supple, normal ROM - Respiratory Respiratory effort: normal Respiratory: bilateral: CTA - Cardiovascular Heart Sounds: Present: S1 & S2. Absent: rub, click - Extremities Extremities: pulses symmetrical, No edema Peripheral Pulses: within normal limits - Abdominal General gastrointestinal: Present: soft, non-tender, non-distended, normal bowel sounds Female genitourinary: Present: normal - Rectal Rectal Exam: deferred - Integumentary Integumentary: Present: clear, warm, dry - Musculoskeletal Musculoskeletal: gait normal, strength equal bilaterally - Psychiatric Psychiatric: appropriate mood/affect, intact judgment & insight - Neurologic Neurologic: CNII-XII intact, moves all extremities Plan Activity: advance as tolerated, other (complete vaginal rest; nothing in the vagina) Weight Bearing Status: Non-Weight Bearing Diet: regular Follow up with: JOHN GRAJEDA MD [Primary Care Provider] - 7 Days (Keep all scheduled appointments. Call with any increase in vaginal bleeding, contractions, decrease movement. Call [phone] with concerns.) Forms: Work/School Release Form
[2018-05-11 07:45] VITALS: BP 115/58
== END 2018-05-11 08:55 | disposition home or self-care (01) | DRG 782 ==
LOC: TRG 09:22 → LD 13:41
PROVIDERS: ADMIT Obstetrics & Gynecology; ATTEND Obstetrics & Gynecology
DX: O30.043 Twin pregnancy, dichorionic/diamniotic, third trimester (principal); O26.873 Cervical shortening, third trimester; Z3A.28 28 weeks gestation of pregnancy; O36.4XX1 Maternal care for intrauterine death, fetus 1
CPT/HCPCS: 36415; 76805; 76810; 76816; 83735; 85027; 86850; 86900; 86901; J0702; J3475; J7120

== ENCOUNTER 2018-05-11 16:14 | Inpatient (IN) | payer MEDICAID ==
[2018-05-11] MEDS ORDERED: PITOCin/NS 20 UNIT/1000ML DRIP 20,000 MILLIUNITS/1,000 ML BAG IV ONE (16:18)
[2018-05-11] MEDS ORDERED: PEPCID IV ONE (16:39)
[2018-05-11] MEDS ORDERED: BICITRA PO ONE (16:39)
[2018-05-11] MEDS ORDERED: REGLAN IV ONE (16:39)
--- NOTE | 2018-05-11 16:47 | History and Physical Report ---
History of Present Illness Date of examination: 05/11/18 (pt presented with BBOW) Date of admission: 05/11/18 16:14 History of present illness: EDC Confirmation: 08/02/2018 Gestational Age: 24 3/7 weeks Past History : 4 Term Births: 3 Premature Births: 0 Living Children: 3 Para: 2 Mult. Births: 0 Prev : 0 Prev. attempt? 0 Aborta: 0 Elect. Ab: 0 Spont. Ab: 0 Ectopics: 0 # 1 Delivery date: 10/06/2008 Weeks Gestation: 40 labor: no Delivery type: Anesthesia type: epidural Delivery location: [facility] Sex: Male weight: 8-0 # 2 Delivery date: 2011 Weeks Gestation: 40 Delivery type: Delivery location: [facility] Infant Sex: Female weight: 7-4 # 3 Delivery date: 02/15/2014 Weeks Gestation: 38.5 Delivery type: Vaginal Anesthesia type: none Delivery location: [facility] Infant Sex: female weight: 7.69 Comments: none Past Medical History: Reviewed history from 11/28/2011 and no changes required: no hx of dvt while taking ocp Negative Past Medical History Past Surgical History: Reviewed history from 12/20/2008 and no changes required: negative Past Medical History Abnormal PAP: negative EMILIANA Exposure: negative Infertility: negative Uterine Anomaly: negative Uterine Surgery (not C/S): negative Other Gynecologic Problems: negative Social Hx: Patient is single non smoker Infection History Hx of STD: none Varicella/Chicken Pox Status: Previous Disease Genetic History Congenital Heart Defect: Mom: no Dad: no Aurelia Disease: Mom: no Dad: no Thalassemia Mom: no Dad: no Neural Tube Defect Mom: no Dad: no Down's Syndrome Mom: no Dad: no Ermias-Sachs Mom: no Dad: no Sickle Cell Disease/Trait Mom: no Dad: no Hemophilia Mom: no Dad: no Muscular Dystrophy Mom: no Dad: no Cystic Fibrosis Mom: no Dad: no Aye Chorea Mom: no Dad: no Mental Retardation Mom: no Dad: no Fragile X Mom: no Dad: no Other Genetic/Chromosomal Disorder Mom: no Dad: no Child w/other defect Mom: no Dad: no Enviromental Exposures Xray Exposure: no Medication, drug, or alcohol use since LMP: no Chemical/Other Exposure: no Exposure to Cat Liter: no Hx of Parvovirus (Fifth Disease): no Occupational Exposure to Children: none Active Medications (reviewed today): PROMETHAZINE HCL 12.5 MG ORAL TABLET (PROMETHAZINE HCL) 1 tab PO q 6 hrs prn nausea SELECT-OB 29-1 MG ORAL TABLET CHEWABLE ( VIT-FE PSAC CMPLX-FA) 1 tab PO q daily PRE-MITCH TABS ( [id number]) T1 PO QD ZOFRAN ODT 8 MG ORAL TABLET DISINTEGRATING (ONDANSETRON) 1 po q12hrs prn Current Allergies (reviewed today): * NKDA (Critical) Past History - Obstetrical History Expected Date of Delivery: 08/03/18 Actual Gestation: 28 Week(s) 0 Day(s) : 4 Para: 3 Hx # Term Pregnancies: 3 Number of Living Children: 3 Medications and Allergies Allergies Allergy/AdvReac Type Severity Reaction Status Date / Time No Known Allergies Allergy Verified 02/15/14 06:06 Home Medications Medication Instructions Recorded Confirmed Last Taken Type Ferrous Sulfate [Feosol 325 MG tab] 325 mg PO BID #60 tablet 02/16/14 Unknown Rx Ibuprofen [Motrin 600 MG tab] 800 mg PO Q6H PRN #30 tablet 02/16/14 Unknown Rx Prenat 115/Iron Fum/Folic/Dss 1 each PO DAILY #30 tablet 02/16/14 Unknown Rx [ 19 Tablet] Active Meds: Active Medications Citric Acid/Sodium Citrate (Bicitra) 30 ml PO ONCE ONE Stop: 05/11/18 16:40 Famotidine (Pepcid) 20 mg IV ONCE ONE Stop: 05/11/18 16:40 Cefazolin Sodium (Ancef/Sterile Water 2 Gm/20 Ml) 2 gm in 20 mls @ 80 mls/hr IV PREOP NR; Protocol Lactated Ringer's (Lactated Ringers) 1,000 mls @ 2,250 mls/hr IV PREOP TIM Stop: 05/12/18 17:27 Oxytocin/Sodium Chloride (Pitocin/Ns 20 Unit/1000ml Drip) 20 units in 1,000 mls @ 0 mls/hr IV TITR TIM Metoclopramide HCl (Reglan) 10 mg IV ONCE ONE Stop: 05/11/18 16:40 - Physical Exam Breasts: Positive: deferred Cardiovascular: Regular rate, Normal S1, Normal S2 Lungs: Positive: Normal air movement Abdomen: Positive: normal appearance, soft, normal bowel sounds. Negative: distention, tenderness Genitourinary (Female): Positive: normal external genitalia Vulva: both: normal Vagina: Positive: normal moisture. Negative: discharge Cervix: Negative: lesion, discharge Uterus: Positive: normal size, normal contour Adnexa: both: normal Anus/Rectum: Positive: normal perianal skin, heme negative. Negative: rectal mass, hemorrhoids Extremities: Deep Tendon Reflex Grade: Normal +2 - Obstetrical FHR: category 1 (baby B) Uterine Contraction Monitor Mode: External Cervical Dilatation: 10 (Baby A delivered on my arrival Demise since 20 weeks) Cervical Effacement Percentage: 100 station: -4 Results All other labs normal. HBsAg Screen Negative Negative *1 RPR Non Reactive Non Reactive *2 Rubella Antibodies, IgG 1.13 index Immune >0.99 *3 Non-immune <0.90 Equivocal 0.90 - 0.99 Immune >0.99 ABO Grouping O *4 Rh Factor Positive *5 Please note: Prior records for this patient's ABO / Rh type are not available for additional verification. Antibody Screen Negative Negative *6 WBC 7.2 x10E3/uL 3.4-10.8 *7 RBC 3.96 x10E6/uL 3.77-5.28 *8 Hemoglobin 11.4 g/dL 11.1-15.9 *9 Hematocrit 35.3 % 34.0-46.6 *10 MCV 89 fL 79-97 *11 MCH 28.8 pg 26.6-33.0 *12 MCHC 32.3 g/dL 31.5-35.7 *13 RDW 13.7 % 12.3-15.4 *14 Platelets 240 x10E3/uL 150-379 *15 Neutrophils 72 % Not Estab. *16 Lymphs 19 % Not Estab. *17 Monocytes 7 % Not Estab. *18 Eos 1 % Not Estab. *19 Basos 0 % Not Estab. *20 ! Immature Cells <No Reported Value> *21 Neutrophils (Absolute) 5.2 x10E3/uL 1.4-7.0 *22 Lymphs (Absolute) 1.4 x10E3/uL 0.7-3.1 *23 Monocytes(Absolute) 0.5 x10E3/uL 0.1-0.9 *24 Eos (Absolute) 0.1 x10E3/uL 0.0-0.4 *25 Baso (Absolute) 0.0 x10E3/uL 0.0-0.2 *26 ! Immature Granulocytes 1 % Not Estab. *27 ! Immature Grans (Abs) 0.1 x10E3/uL 0.0-0.1 *28 ! NRBC <No Reported Value> *29 Hematology Comments: <No Reported Value> *30 Tests: (2) Panel 453064 ([id number]) HIV Screen 4th Generation wRfx Non Reactive Non Reactive *31 Tests: (3) Gest. Diabetes 1-Hr Screen ([id number]) ! Gestational Diabetes Screen 87 mg/dL 65-139 *32 According to ADA, a glucose threshold of >139 mg/dL after 50-gram load identifies approximately 80% of women with gestational diabetes mellitus, while the sensitivity is further increased to approximately 90% by a threshold of >129 mg/dL. Tests: (4) Urine Culture, Routine ([id number]) Urine Culture, Routine Final report *33 Tests: (5) Result ([id number]) ! Result 1 MUG Assessment and Plan Pt With twin gestation Demise of baby A @ 20 weeks Pt is now 28 weeks with viable Twin B here Bedside US Baby B is breech Orders in EMR for stat section Del notes for vaginal del of twin A documented - Patient Problems (1) 28 weeks gestation of Onset Date: ~05/11/18 Current Visit: No Status: Acute (2) labor in third trimester with delivery Onset Date: ~05/11/18 Current Visit: Yes Status: Acute Qualifiers: Fetus number: fetus 1 of multiple gestation Qualified Code(s): O60.14X1 - labor third trimester with delivery third trimester, fetus 1 Plan to address problem: Twin A demise delivered Twin B PPROM coffee colored fluid Breech to OR for STAT c/s
[2018-05-11] MEDS ORDERED: NEO SYNEPHRINE/NS Syringe(OR USE) IV ONE (16:49)
[2018-05-11 16:52] LABS: Hematocrit 35.2 % (30.3-42.9); Hemoglobin 11.5 gm/dl (10.1-14.3); Mean Corpuscular HGB Conc 33 % (30-34); Mean Corpuscular Hemoglobin 29 pg (28-32); Mean Corpuscular Volume 88 fl (79-97); Platelet Count 254 K/mm3 (140-440); Red Blood Count 4.02 M/mm3 (3.65-5.03); Red Cell Distribution Width 13.7 % (13.2-15.2)
[2018-05-11] MEDS ORDERED: PITOCin/NS 20 UNIT/1000ML DRIP 20 UNITS/1,000 ML BAG IV SCH ×2 (17:00→20:35)
[2018-05-11] MEDS ORDERED: ANCEF/STERILE WATER 2 GM/20 ML 2 GM/20 ML SYRINGE IV NR (17:00)
[2018-05-11] MEDS ORDERED: NACL 0.9% IR ONE (17:00)
[2018-05-11] MEDS ORDERED: WATER FOR IRRIG STERILE IR ONE (17:00)
[2018-05-11] MEDS ORDERED: LACTATED RINGERS 1,000 ML IV SCH (17:00)
[2018-05-11] MEDS ORDERED: ANCEF/STERILE WATER 2 GM/20 ML IV ONE (17:02)
[2018-05-11] MEDS ORDERED: SUBLIMAZE ONE (17:07)
[2018-05-11] MEDS ORDERED: XYLOCAINE MPF 2% ONE ×2 (17:08→17:19)
--- NOTE | 2018-05-11 17:08 | Procedure Note ---
OB Delivery Note - Delivery Date of Delivery: 05/11/18 Sustainability Analyst: DOMINIK ZHAO Estimated blood loss: <100cc - Vaginal Delivery presentation: vertex Intrapartum events: other(please specify) (Twin A demise since 20 weeks) Delivery induction: none Delivery monitor: none Route of delivery: Episiotomy: none Delivery laceration: none Anesthesia: none Delivery comments: Pt presented from home with BBOW Pushed X 1 and Twin A delivered, demise. cord clamped and cut and handed off to RN Twin B's water broke spontaneously coffee colored. at bedside US reveals Baby B to be breech. Pt consented for section. Pt to OR for STAT c/s - Infant A at 1 minute: 0 at 5 minutes: 0 Infant Gender: Female
[2018-05-11] MEDS ORDERED: ZOFRAN ONE (17:19)
[2018-05-11] MEDS ORDERED: LACTATED RINGERS 1,000 ML ONE (18:09)
--- NOTE | 2018-05-11 18:10 | Operative Report ---
Operative Report Operative Report: Date of procedure: 05/11/2018 Pre-operative diagnosis: Intrauterine at 28 weeks, twin gestation with demise of twin A, premature labor with breech presentation of twin B Post-operative diagnosis: Came Procedure name(s): Her low transverse section Surgeon: Lonnie Mejia MD Supervisor Safety Deposit: Nai Melchor Anesthesia: Epidural EBL: 700 mL Complications: [] Findings: [] Specimen(s): Male transverse backup presentation at time upon delivery versus reach seen prior to delivery. Weight is not known at time of dictation Apgars 6 at 1 minute and 8 at 5 minutes. Indication: Vaginal delivery of the demised twin a an labor room. Ultrasound in labor room revealed twin B in a breech presentation Procedure: The patient was brought to the operating room. A spinal was placed without any complications. She was then placed in left lateral tilt. Prepped and draped in the usual sterile manner. After testing for adequate anesthesia level, a Pfannenstiel incision was made. This incision was taken down to the fascia. The fascia was then nicked in the midline. This incision was extended out laterally with Woods scissors. The fascia was then sharply and bluntly from the underlying rectus muscles. The rectus muscles were bluntly and sharply . The peritoneum was then entered with the tin whiz machine operator's fingers. This incision was spread vertically with care not to damage the bladder below. The bladder flap was then formed sharply and bluntly with Metzenbaum scissors. [The Hesham self-retaining tractor was then placed without any difficulty]. A transverse incision was made in lower uterine segment. This incision was extended laterally with the operators fingers. The amniotic sac was then entered bluntly with the tin whiz machine operator's fingers. The infant was delivered from the vertex position. Bulb suction on the mother's abdomen. Cord was double clamped and cut. The was then passed to the nursery personnel who were in attendance. The above scores were given by the nursery personnel. The placenta was then bluntly removed. The uterus was then externalized and wiped clean the remaining products. The uterine incision was closed in layers. The first incision was closed in a locking manner using 0 Vicryl. This was followed by imbricating stitch also with 0 Vicryl. This closure was hemostatic. The bladder flap was copiously irrigated and found to be hemostatic. The pelvis was copiously irrigated and found to be hemostatic. The uterus was then placed back to the patient's abdomen. The retractors were removed. The rectus muscles were inspected and found to be hemostatic. The fascia was then closed in a running manner using 0 Vicryl. This incision was hemostatic irrigation Bovie. The skin was reapproximated with 4-0 Vicryl subcuticularly. The patient tolerated procedure well. Her urine was clear. The infant was admitted to the [well baby] nursery. The patient was accompanied to recovery room in good condition. Instrument count correct times 3.
[2018-05-11 18:17] LABS: Band Neutrophils # (Manual) 0.7 K/mm3; Eosinophils % (Manual) 0 % (0.0-4.3); Total Cells Counted 100
[2018-05-11 18:18] LABS: Basophils % (Manual) 0 % (0.0-1.8); Ovalocytes Few
[2018-05-11] MEDS ORDERED: TUCKS PAD TP PRN (20:35)
[2018-05-11] MEDS ORDERED: ZOFRAN IV PRN (20:35)
[2018-05-11] MEDS ORDERED: LANSINOH TP PRN (20:35)
[2018-05-11] MEDS ORDERED: NARCAN 0.4 MG/1 ML IV PRN (20:35)
[2018-05-11] MEDS ORDERED: SODIUM CHLORIDE FLUSH SYRINGE 10 ML IV NR (20:35)
[2018-05-11] MEDS: TORADOL IV SCH (20:40)
[2018-05-11] MEDS: NORCO 5/325 PO PRN (22:05)
[2018-05-11] MEDS: D5LR 1,000 ML IV SCH (22:15)
[2018-05-12] MEDS: ANCEF/NS 1 GM/50 ML 1 GM/50 ML BAG IV SCH ×2 (00:06→07:58)
[2018-05-12] MEDS: TORADOL IV SCH ×3 (04:33→14:00)
[2018-05-12] MEDS: D5LR 1,000 ML IV SCH (05:48)
[2018-05-12] MEDS ORDERED: BOOSTRIX IM ONE (06:00)
[2018-05-12 06:59] LABS: Hematocrit 26.4 % (30.3-42.9); Hemoglobin 8.7 gm/dl (10.1-14.3)
[2018-05-12] MEDS: NORCO 5/325 PO PRN ×3 (07:19→22:12)
--- NOTE | 2018-05-12 07:51 | Progress Note ---
Assessment and Plan patient resting, rates pain 7/10 (recently has PO pain medication.) Dressing D& I, lochia scant, VSSAF, postop H&H 8.7/26.4. reviewed expectations for pain management, advance in activity as tolerated and advance in diet. RN notified to get patient breastpump as she wishes to breast feed. Will start FE and colace BID. Continue postop pathway. - Patient Problems (1) delivery delivered Current Visit: Yes Status: Acute (2) Anemia due to acute blood loss Current Visit: Yes Status: Acute Subjective - Subjective Date of service: 05/12/18 Principal diagnosis: postop day #1 s/p c/s del of twin B d/t breech Patient reports: appetite normal, voiding normally, pain well controlled, flatus , no nauseated [place]: transported (to [facility] per patient) Objective - Vital Signs Latest vital signs: Vital Signs Temp Pulse Resp BP BP Pulse Ox 05/12/18 04:15 98.8 F 72 20 107/63 05/12/18 00:00 98.2 F 78 20 110/65 05/11/18 20:10 99.0 F 66 20 115/68 05/11/18 19:05 98.3 F 05/11/18 19:00 58 L 13 98/74 100 05/11/18 18:55 62 16 98/74 98 05/11/18 18:50 71 14 104/74 100 05/11/18 18:45 55 L 14 106/63 99 05/11/18 18:40 11 L 120/69 99 05/11/18 18:35 20 115/65 100 05/11/18 18:30 12 99 05/11/18 18:26 21 97 05/11/18 18:20 18 100 05/11/18 18:16 22 95 05/11/18 18:13 57 L 11 L 99 05/11/18 18:08 98.4 F 05/11/18 16:20 97.7 F 22 Intake and Output 05/11/18 05/11/18 05/12/18 15:59 23:59 07:59 Intake Total 1700 1303.75 Output Total 250 1400 Balance 1450 -96.25 Intake: IV 1700 943.75 D5lr 1,000 ml @ 125 mls/ 943.75 hr IV DIRECT TIM Rx#: [id number] Oral 360 Output: Urine 250 1400 Indwelling Catheter 1400 Other: Total, Intake Amount 120 Total, Output Amount 300 Weight 96.615 kg Estimated Blood Loss 800 - Exam Breasts: Present: normal Cardiovascular: Present: Regular rate Lungs: Present: Clear to auscultation, Normal air movement Abdomen: Present: normal appearance, soft Vulva: both: normal Uterus: Present: normal, firm, fundal height at umbilicus Extremities: Present: normal Deep Tendon Reflex Grade: Normal +2 Incision: Present: normal, dry, dressed - Labs Labs: Abnormal lab results 05/11/18 05/12/18 Range/Units 16:30 05:51 WBC 13.5 H (4.5-11.0) K/mm3 Hgb 8.7 L (10.1-14.3) gm/dl Hct 26.4 L D (30.3-42.9) % Seg Neuts % (Manual) 80.0 H (40.0-70.0) % Lymphocytes % (Manual) 11.0 L (13.4-35.0) % Seg Neutrophils # Man 10.8 H (1.8-7.7) K/mm3
[2018-05-12] MEDS: COLACE PO SCH ×2 (10:12→22:12)
[2018-05-12] MEDS: PRENATAL VITAMIN PO SCH (10:14)
[2018-05-12] MEDS: FEOSOL PO SCH ×2 (10:14→22:12)
[2018-05-12] MEDS ORDERED: DILAUDID IV ONE (11:00)
[2018-05-12] MEDS: MOTRIN PO PRN (22:13)
[2018-05-13] MEDS: MOTRIN PO PRN (06:14)
--- NOTE | 2018-05-13 07:34 | Progress Note ---
Assessment and Plan - Patient Problems (1) delivery delivered Onset Date: ~05/11/18 Current Visit: Yes Status: Acute Plan to address problem: pt resting after long discussion about discharge Pt asks to stay one more day VSS FF below umb Lochia scant Incision D&I H&H 06/21 stable asymptomatic Stable s/p c/s twin B; vaginal delivery Twin A demise P: continue pathway plab d/c tomorrow Subjective - Subjective Date of service: 05/13/18 (pt requests another day) Principal diagnosis: postop day #2 s/p c/s del of twin B d/t breech; twin A demise Interval history: EDC Confirmation: 08/02/2018 Gestational Age: 24 3/7 weeks Past History : 4 Term Births: 3 Premature Births: 0 Living Children: 3 Para: 2 Mult. Births: 0 Prev : 0 Prev. attempt? 0 Aborta: 0 Elect. Ab: 0 Spont. Ab: 0 Ectopics: 0 # 1 Delivery date: 10/06/2008 Weeks Gestation: 40 labor: no Delivery type: Anesthesia type: epidural Delivery location: [facility] Infant Sex: Male weight: 8-0 # 2 Delivery date: 2011 Weeks Gestation: 40 Delivery type: Delivery location: [facility] Sex: Female weight: 7-4 # 3 Delivery date: 02/15/2014 Weeks Gestation: 38.5 Delivery type: Vaginal Anesthesia type: none Delivery location: [facility] Sex: female weight: 7.69 Comments: none Past Medical History: Reviewed history from 11/28/2011 and no changes required: no hx of dvt while taking ocp Negative Past Medical History Past Surgical History: Reviewed history from 12/20/2008 and no changes required: negative Past Medical History Abnormal PAP: negative EMILIANA Exposure: negative Infertility: negative Uterine Anomaly: negative Uterine Surgery (not C/S): negative Other Gynecologic Problems: negative Social Hx: Patient is single non smoker Infection History Hx of STD: none Varicella/Chicken Pox Status: Previous Disease Genetic History Congenital Heart Defect: Mom: no Dad: no Aurelia Disease: Mom: no Dad: no Thalassemia Mom: no Dad: no Neural Tube Defect Mom: no Dad: no Down's Syndrome Mom: no Dad: no Ermias-Sachs Mom: no Dad: no Sickle Cell Disease/Trait Mom: no Dad: no Hemophilia Mom: no Dad: no Muscular Dystrophy Mom: no Dad: no Cystic Fibrosis Mom: no Dad: no Aye Chorea Mom: no Dad: no Mental Retardation Mom: no Dad: no Fragile X Mom: no Dad: no Other Genetic/Chromosomal Disorder Mom: no Dad: no Child w/other defect Mom: no Dad: no Enviromental Exposures Xray Exposure: no Medication, drug, or alcohol use since LMP: no Chemical/Other Exposure: no Exposure to Cat Liter: no Hx of Parvovirus (Fifth Disease): no Occupational Exposure to Children: none Active Medications (reviewed today): PROMETHAZINE HCL 12.5 MG ORAL TABLET (PROMETHAZINE HCL) 1 tab PO q 6 hrs prn nausea SELECT-OB 29-1 MG ORAL TABLET CHEWABLE ( VIT-FE PSAC CMPLX-FA) 1 tab PO q daily PRE-MITCH TABS ( [id number]) T1 PO QD ZOFRAN ODT 8 MG ORAL TABLET DISINTEGRATING (ONDANSETRON) 1 po q12hrs prn Current Allergies (reviewed today): * NKDA (Critical) Patient reports: appetite normal, voiding normally, pain well controlled [place]: transported ([facility]) Objective - Vital Signs Latest vital signs: Vital Signs Temp Pulse Resp BP BP Pulse Ox 05/13/18 00:00 98.7 F 67 16 124/80 05/12/18 18:12 98.6 F 72 20 119/76 99 05/12/18 11:56 98.6 F 78 22 116/71 98 05/12/18 07:57 99.0 F 64 20 103/71 98 Intake and Output 05/12/18 05/13/18 05/13/18 22:59 06:59 14:59 Intake Total 300 Balance 300 Intake: Intake, Free Water 300 - Exam Breasts: Present: normal Cardiovascular: Present: Regular rate Lungs: Present: Normal air movement Abdomen: Present: normal appearance, soft, normal bowel sounds Uterus: Present: normal, fundal height below umbilicus Extremities: Present: normal Deep Tendon Reflex Grade: Normal +2 Incision: Present: normal, dry, intact
[2018-05-13] MEDS ORDERED: MOTRIN PO SCH (11:00)
[2018-05-13] MEDS: FEOSOL PO SCH ×2 (11:50→21:38)
[2018-05-13] MEDS: COLACE PO SCH ×2 (11:50→21:38)
[2018-05-13] MEDS: PRENATAL VITAMIN PO SCH (11:50)
[2018-05-13] MEDS: MOTRIN PO SCH ×3 (11:50→23:48)
[2018-05-13] MEDS: NORCO 5/325 PO PRN ×2 (11:50→18:15)
[2018-05-14] MEDS: MOTRIN PO SCH (05:47)
--- NOTE | 2018-05-14 07:07 | Discharge Summary ---
Providers - Providers Date of Admission: 05/11/18 16:14 Date of discharge: 05/14/18 (pt agrees to d/c) Attending physician: BRIGHT STRONG 05/11/18 20:35 Consult to Golf Club Manager [CONS] Routine Reason For Exam: Primary care physician: JOHN GRAJEDA Hospitalization Reason for admission: labor (twins demise twin a vag delivery twin b c/ s due to breech) Delivery: Procedure: primary low transverse Episiotomy: none Laceration: none Incision: normal, dry, intact Other procedures: none complications: none Discharge diagnosis: delivery [place] baby: twins Hospital course: uncomplicated section pt resting doing better today with pain VSS FF below umb Lochia scant Incision D &I Asymptomatic anemia Doing well s/p c/s P: d/c today with instructions RTO 1 week RX provided Condition at discharge: Good Disposition: DC-01 TO HOME OR SELFCARE - Discharge Diagnoses (1) delivery delivered Status: Acute Comment: RTO 1 week postop visit Plan - Discharge Medications Prescriptions: Ferrous Sulfate [Feosol 325 MG tab] 325 mg PO BID #60 tablet Ibuprofen [Motrin 800 MG tab] 800 mg PO Q6H PRN #30 tablet PRN Reason: Pain oxyCODONE /ACETAMINOPHEN [Percocet 5/325 mg] 1 - 2 tab PO Q4H PRN #30 tablet PRN Reason: Pain, Moderate - Provider Discharge Summary Activity: routine, no sex for 6 weeks, no heavy lifting 4 weeks, no strenuous exercise Diet: routine Instructions: routine Additional instructions: [] Smoking cessation referral if applicable(refer to patient education folder for contact #) [] Refer to [facility] Booklet Call your doctor immediately for: * Fever > 100.5 * Heavy vaginal bleeding ( >1 pad per hour) * Severe persistent headache * Shortness of breath * Reddened, hot, painful area to leg or breast * Drainage or odor from incision. * Keep incision clean and dry at all times and follow doctor's instructions regarding bathing/showering - Follow up plan Follow up: JOHN GRAJEDA MD [Primary Care Provider] - 7 Days (Please call [phone] to schedule your postoperative visit 1 week. Take medications as prescribed. Call with any concerns. [facility] [address] [place] [address] [address] [facility] [id number])
[2018-05-14] MEDS: NORCO 5/325 PO PRN (09:46)
[2018-05-14] MEDS: COLACE PO SCH (09:46)
[2018-05-14] MEDS: FEOSOL PO SCH (09:46)
[2018-05-14] MEDS: PRENATAL VITAMIN PO SCH (09:47)
[2018-05-14 11:01] VITALS: BP 125/73
== END 2018-05-14 15:00 | disposition home or self-care (01) | DRG 765 ==
LOC: LD 16:14 → APU 17:34 → OB 19:54
PROVIDERS: ADMIT Obstetrics & Gynecology; ATTEND Obstetrics & Gynecology
PROC: 10D00Z1 Extraction of Products of Conception, Low, Open Approach (ICD-10-PCS; principal; 2018-05-11)
PROC: 10E0XZZ Delivery of Products of Conception, External Approach (ICD-10-PCS; 2018-05-11)
PROC: 3E0234Z Introduction of Serum, Toxoid and Vaccine into Muscle, Percutaneous Approach (ICD-10-PCS; 2018-05-12)
DX: O30.003 Twin pregnancy, unspecified number of placenta and unspecified number of amniotic sacs, third trimester (principal); O60.14X1 Preterm labor third trimester with preterm delivery third trimester, fetus 1; O60.14X2 Preterm labor third trimester with preterm delivery third trimester, fetus 2; D62 Acute posthemorrhagic anemia; Z3A.28 28 weeks gestation of pregnancy; Z37.0 Single live birth; Z23 Encounter for immunization; Z37.3 Twins, one liveborn and one stillborn; O32.1XX2 Maternal care for breech presentation, fetus 2; O90.81 Anemia of the puerperium
CPT/HCPCS: 36415; 85007; 85014; 85018; 85025; 86850; 86900; 86901; 88307; 90471; 90715; 99211; G0463; J0690; J1170; J1885; J2370; J2405; J2590; J2765; J3010; J7120; J7121

== ENCOUNTER 2021-10-11 04:08 | Emergency (ER) | payer BC, MEDICAID ==
[2021-10-11 04:13] VITALS: BP 106/62
[2021-10-11 04:53] LABS: Basophils # (Auto) 0.1 K/mm3 (0.0-0.1); Basophils % (Auto) 1.3 % (0.0-1.8); Eosinophils # (Auto) 0.1 K/mm3 (0.0-0.4); Eosinophils % (Auto) 1.6 % (0.0-4.3); Hematocrit 35.3 % (30.3-42.9); Hemoglobin 11.1 gm/dl (10.1-14.3); Lymphocytes # (Auto) 1.5 K/mm3 (1.2-5.4); Lymphocytes % (Auto) 22.5 % (13.4-35.0); Mean Corpuscular HGB Conc 31 % (30-34); Mean Corpuscular Volume 85 fl (79-97); Monocytes # (Auto) 0.6 K/mm3 (0.0-0.8); Monocytes % (Auto) 9.6 % (0.0-7.3); Platelet Count 343 K/mm3 (140-440); Red Blood Count 4.17 M/mm3 (3.65-5.03); Red Cell Distribution Width 15.7 % (13.2-15.2)
[2021-10-11 06:43] LABS: Bacteria,Urine 1+ /HPF (Negative); Bilirubin,Urine NEG (Negative); Blood,Urine SM (Negative); Color,Urine Straw (Yellow); Mucus,Urine FEW /HPF; Protein,Urine <15 mg/dL mg/dL (Negative); Urobilinogen,Urine < 2.0 mg/dL (<2.0)
[2021-10-11] MEDS ORDERED: METOCLOPRAMIDE 10 MG/2 ML INJ IV ONE (06:46)
[2021-10-11] MEDS ORDERED: SODIUM CHLORIDE 0.9% 1000 ML 1,000 ML IV ONE (06:46)
[2021-10-11] MEDS ORDERED: MORPHINE 4 MG/1 ML INJ IV ONE (06:46)
--- NOTE | 2021-10-11 06:46 | Emergency Department Report ---
ED Abdominal Pain HPI - General Chief Complaint: Abdominal Pain Stated Complaint: RIGHT SIDE PAIN Time Seen by Provider: 10/11/21 06:24 Source: patient Mode of arrival: Ambulatory Limitations: No Limitations - History of Present Illness Initial Comments: Patient presented secondary to abdominal pain and referral from her INSURANCE OPERATIONS REP. Patient has been having intermittent abdominal pain for several weeks now. Her INSURANCE OPERATIONS REP is concerned that she may have an ectopic because her quantitative numbers are going up and no ultrasound has been demonstrative of intrauterine . She states she had more severe pain this morning. She called her driver supervisor who referred her here. Pain is described as sharp and cramping. It is in the epigastric area and radiating down to the lower abdomen. It is not unilateral. She has no flank pain associated with this. She denies fevers or chills per there is no cough or congestion. She has had no vomiting or diarrhea. She has never had an ectopic before. - Related Data Previous Rx's Medication Instructions Recorded Last Taken Type Ferrous Sulfate [Feosol 325 MG tab] 325 mg PO BID #60 tablet 02/16/14 05/11/18 Rx Ibuprofen [Motrin 600 MG tab] 800 mg PO Q6H PRN #30 tablet 02/16/14 05/11/18 Rx Prenat 115/Iron Fum/Folic/Dss 1 each PO DAILY #30 tablet 02/16/14 05/11/18 Rx [ 19 Tablet] Ferrous Sulfate [Feosol 325 MG tab] 325 mg PO BID #60 tablet 05/11/18 Unknown Rx Ibuprofen [Motrin 800 MG tab] 800 mg PO Q6H PRN #30 tablet 05/11/18 Unknown Rx oxyCODONE /ACETAMINOPHEN [Percocet 1 - 2 tab PO Q4H PRN #30 tablet 05/11/18 Unkn own Rx 5/325 mg] Allergies Allergy/AdvReac Type Severity Reaction Status Date / Time No Known Allergies Allergy Verified 02/15/14 06:06 ED Review of Systems ROS: Stated complaint: RIGHT SIDE PAIN Other details as noted in HPI Comment: All other systems reviewed and negative Constitutional: denies: fever Eyes: denies: vision change ENT: denies: throat pain Respiratory: denies: cough Cardiovascular: denies: chest pain Endocrine: denies: unexplained weight loss Gastrointestinal: as per HPI Genitourinary: denies: dysuria Musculoskeletal: denies: back pain Skin: denies: rash Neurological: denies: headache Hematological/Lymphatic: denies: easy bruising ED Past Medical Hx - Past Medical History Hx Hypertension: No Hx Congestive Heart Failure: No Hx Diabetes: No Hx Deep Vein Thrombosis: No Hx Renal Disease: No Hx Sickle Cell Disease: No Hx Seizures: No Hx Asthma: No Hx COPD: No Hx HIV: No - Surgical History Past Surgical History?: No - Family History Family history: no significant - Social History Smoking Status: Never Smoker - Medications Home Medications: Home Medications Medication Instructions Recorded Confirmed Last Taken Type Ferrous Sulfate [Feosol 325 MG tab] 325 mg PO BID #60 tablet 02/16/14 05/12/18 05/11/18 Rx Ibuprofen [Motrin 600 MG tab] 800 mg PO Q6H PRN #30 tablet 02/16/14 05/12/18 05/11/18 Rx Prenat 115/Iron Fum/Folic/Dss 1 each PO DAILY #30 tablet 02/16/14 05/12/18 05/11/18 Rx [ 19 Tablet] Ferrous Sulfate [Feosol 325 MG tab] 325 mg PO BID #60 tablet 05/11/18 Unknown Rx Ibuprofen [Motrin 800 MG tab] 800 mg PO Q6H PRN #30 tablet 05/11/18 Unknown Rx oxyCODONE /ACETAMINOPHEN [Percocet 1 - 2 tab PO Q4H PRN #30 tablet 05/11/18 Unknown Rx 5/325 mg] ED Physical Exam - General Limitations: No Limitations, Other (Pulse ox noted and normal) General appearance: alert, in no apparent distress - Head Head exam: Present: atraumatic, normocephalic - Eye Eye exam: Present: normal appearance, EOMI - ENT ENT exam: Present: normal exam, normal orophraynx - Neck Neck exam: Present: normal inspection. Absent: meningismus - Respiratory Respiratory exam: Present: normal lung sounds bilaterally. Absent: respiratory distress - Cardiovascular Cardiovascular Exam: Present: regular rate, normal rhythm - GI/Abdominal GI/Abdominal exam: Present: soft, tenderness (Mild suprapubic). Absent: guarding, rebound - Extremities Exam Extremities exam: Present: normal capillary refill - Back Exam Back exam: Absent: CVA tenderness (R), CVA tenderness (L) - Neurological Exam Neurological exam: Present: alert, oriented X3, CN II-XII intact, normal gait - Psychiatric Psychiatric exam: Present: normal affect, normal mood - Skin Skin exam: Present: warm, dry ED Course Vital Signs 10/11/21 04:12 Temperature 98.0 F Pulse Rate 65 Respiratory 18 Rate Blood Pressure 106/62 O2 Sat by Pulse 100 Oximetry - Reevaluation(s) Reevaluation #1: 10/11/21 06:46 Labs and ultrasound ordered. Old records reviewed. Reevaluation #2: 10/11/21 09:14 Work-up was complete and the patient was discharged ED Medical Decision Making - Lab Data Result diagrams: 10/11/21 04:35 10/11/21 04:30 - Radiology Data Radiology results: report reviewed - Medical Decision Making Patient presents with abdominal pain of unclear etiology. She had concern for ectopic . Based on ultrasound, there is an IUP. We did not see obvious cardiac cavity which could suggest IUFD. Regardless, there is no ectopic. Patient does not appear to be septic or toxic. She was discharged with referral back to her driver supervisor for recheck. She did not have dysuria or frequency suggestive of urinary tract infection. There is no clinical evidence of bowel nephritis. Critical Care Time: No Critical care attestation.: If time is entered above; I have spent that time in minutes in the direct care of this critically ill patient, excluding procedure time. ED Disposition Clinical Impression: Generalized abdominal pain affecting Disposition: 01 HOME / SELF CARE / HOMELESS Is pt being admited?: No Condition: Stable Instructions: Abdominal Pain During , [id number], Pain Without a Known Cause, Abdominal Pain (ED) Additional Instructions: Drink plenty water. Have a bland diet. Use Tylenol for pain. Follow-up with your INSURANCE OPERATIONS REP for recheck. Follow-up with your family doctor for recheck. Return for any problems or concerns. Referrals: KARLA SORENSEN MD [Primary Care Provider] - 3-5 Days
[2021-10-11 07:33] LABS: Alanine Aminotransferase 33 units/L (7-56); Albumin 4.4 g/dL (3.9-5); Blood Urea Nitrogen 7 mg/dL (7-17); Calcium 9.1 mg/dL (8.4-10.2); Hemolysis Index 17
[2021-10-11 07:34] LABS: BUN/Creatinine Ratio 12
--- NOTE | 2021-10-11 08:29 | Ultrasound Report ---
ULTRASOUND OBSTETRIC INDICATION: Right-sided pain, evaluate for ectopic. TECHNIQUE: Transabdominal and Transvaginal. COMPARISON: None available. FINDINGS: GESTATIONAL SAC: Well-defined oval shape and intrauterine in location. Mean sac diameter is 8.3 mm, c onsistent with an age of 5 weeks, 4 days. YOLK SAC: No significant abnormality. EMBRYO/FETUS: None seen. ADNEXA: A probable corpus luteum cyst is seen in the left ovary measuring 1.6 x 1.5 cm. No other sign ificant abnormalities. FREE FLUID: None. ADDITIONAL FINDINGS: None. IMPRESSION: 1. Single intrauterine gestational sac without visualization of a pole with an estimated age of 5 weeks, 4 days. 2. No acute abnormality of the pelvis. Signer Name: Olman Carlos MD Signed: 10/11/2021 8:25 AM Workstation Name: [id number]
== END 2021-10-11 09:31 | disposition home or self-care (01) ==
LOC: ED 04:08
DX: O26.899 Other specified pregnancy related conditions, unspecified trimester (principal); R10.84 Generalized abdominal pain; Z3A.00 Weeks of gestation of pregnancy not specified
CPT/HCPCS: 36415; 76801; 76817; 80053; 81001; 84702; 85025; 86900; 86901; 96361; 96374; 96375; 99284; J2270; J2765; J7030; Q0162

== ENCOUNTER 2022-01-12 11:40 | Emergency (ER) | payer BC, MEDICAID ==
[2022-01-12] MEDS ORDERED: SODIUM CHLORIDE 0.9% 1000 ML 1,000 ML IV ONE (12:13)
--- NOTE | 2022-01-12 12:16 | Emergency Department Report ---
ED General Adult HPI - General Chief complaint: OB/Uterine Contractions Stated complaint: 18 WEEKS PREGANT WITH VAGINAL LEAKING Time Seen by Provider: 01/12/22 12:12 Source: patient Mode of arrival: Ambulatory Limitations: No Limitations - History of Present Illness Initial comments: Patient is 31 years old female 6 para 4 at 18 weeks gestation. Patient presented to the ER complaining of lower abdominal pain and possible amniotic fluid leakage. Patient stated that she was at work when all of a sudden she felt that she wet herself. She denied any vaginal bleeding or vaginal discharge. She also denied any fever or chills. No chest pain or shortness of breath. Severity scale (0 -10): 0 - Related Data Previous Rx's Medication Instructions Recorded Last Taken Type Ferrous Sulfate [Feosol 325 MG tab] 325 mg PO BID #60 tablet 02/16/14 05/11/18 Rx Ibuprofen [Motrin 600 MG tab] 800 mg PO Q6H PRN #30 tablet 02/16/14 05/11/18 Rx Prenat 115/Iron Fum/Folic/Dss 1 each PO DAILY #30 tablet 02/16/14 05/11/18 Rx [ 19 Tablet] Ferrous Sulfate [Feosol 325 MG tab] 325 mg PO BID #60 tablet 05/11/18 Unknown Rx Ibuprofen [Motrin 800 MG tab] 800 mg PO Q6H PRN #30 tablet 05/11/18 Unknown Rx oxyCODONE /ACETAMINOPHEN [Percocet 1 - 2 tab PO Q4H PRN #30 tablet 05/11/18 Unknown Rx 5/325 mg] Allergies Allergy/AdvReac Type Severity Reaction Status Date / Time No Known Allergies Allergy Verified 02/15/14 06:06 ED Review of Systems ROS: Stated complaint: 18 WEEKS PREGANT WITH VAGINAL LEAKING Other details as noted in HPI Comment: All other systems reviewed and negative Constitutional: denies: chills, fever Respiratory: denies: cough, shortness of breath, SOB with exertion, SOB at rest Cardiovascular: denies: chest pain, palpitations Gastrointestinal: abdominal pain. denies: nausea, vomiting, diarrhea, constipation, hematemesis, melena, hematochezia Musculoskeletal: denies: back pain Neurological: denies: headache, weakness, numbness, paresthesias, confusion ED Past Medical Hx - Past Medical History Hx Hypertension: No Hx Congestive Heart Failure: No Hx Diabetes: No Hx Deep Vein Thrombosis: No Hx Renal Disease: No Hx Sickle Cell Disease: No Hx Seizures: No Hx Asthma: No Hx COPD: No Hx HIV: No - Social History Smoking Status: Never Smoker - Medications Home Medications: Home Medications Medication Instructions Recorded Confirmed Last Taken Type Ferrous Sulfate [Feosol 325 MG tab] 325 mg PO BID #60 tablet 02/16/14 05/12/18 05/11/18 Rx Ibuprofen [Motrin 600 MG tab] 800 mg PO Q6H PRN #30 tablet 02/16/14 05/12/18 05/11/18 Rx Prenat 115/Iron Fum/Folic/Dss 1 each PO DAILY #30 tablet 02/16/14 05/12/18 05/11/18 Rx [ 19 Tablet] Ferrous Sulfate [Feosol 325 MG tab] 325 mg PO BID #60 tablet 05/11/18 Unknown Rx Ibuprofen [Motrin 800 MG tab] 800 mg PO Q6H PRN #30 tablet 05/11/18 Unknown Rx oxyCODONE /ACETAMINOPHEN [Percocet 1 - 2 tab PO Q4H PRN #30 tablet 05/11/18 Unknown Rx 5/325 mg] ED Physical Exam - General Limitations: No Limitations General appearance: alert, in no apparent distress - Head Head exam: Present: atraumatic, normocephalic, normal inspection - Eye Eye exam: Present: normal appearance - ENT ENT exam: Present: normal exam, normal orophraynx, mucous membranes moist - Neck Neck exam: Present: normal inspection, full ROM. Absent: tenderness, meningismus - Respiratory Respiratory exam: Present: normal lung sounds bilaterally - Cardiovascular Cardiovascular Exam: Present: regular rate, normal rhythm, normal heart sounds - GI/Abdominal GI/Abdominal exam: Present: soft, normal bowel sounds. Absent: distended, tenderness, guarding, rebound, rigid, organomegaly, mass, bruit, pulsatile mass, hernia - Extremities Exam Extremities exam: Present: normal inspection, full ROM, normal capillary refill. Absent: tenderness - Back Exam Back exam: Present: normal inspection, full ROM. Absent: CVA tenderness (R), CVA tenderness (L) - Neurological Exam Neurological exam: Present: alert, oriented X3, CN II-XII intact, normal gait, reflexes normal. Absent: motor sensory deficit - Psychiatric Psychiatric exam: Present: normal mood - Skin Skin exam: Present: warm, intact, normal color ED Course Vital Signs 01/12/22 01/12/22 11:44 12:19 Temperature 98.4 F Pulse Rate 83 Respiratory 18 17 Rate Blood Pressure 130/78 [Right] O2 Sat by Pulse 98 100 Oximetry ED Medical Decision Making - Lab Data Result diagrams: 01/12/22 12:56 01/12/22 12:56 - Radiology Data Radiology results: report reviewed - Medical Decision Making Patient is 31 years old female 6 para 4 at 18 weeks gestation. Patient presented to the ER complaining of lower abdominal pain and possible amniotic f luid leakage. Patient stated that she was at work when all of a sudden she felt that she wet herself. She denied any vaginal bleeding or vaginal discharge. She also denied any fever or chills. No chest pain or shortness of breath. Labs reviewed and is unremarkable. ultrasound showed viable intrauterine gestation at 18 weeks and 6 days with no acute abnormalities. Patient advised to follow-up with her OB doctor in the next 2 to 3 days and to return to the ER if she develop any new symptoms. Critical care attestation.: If time is entered above; I have spent that time in minutes in the direct care of this critically ill patient, excluding procedure time. ED Disposition Clinical Impression: Abdominal pain affecting Disposition: 01 HOME / SELF CARE / HOMELESS Is pt being admited?: No Condition: Stable Instructions: Abdominal Pain During , [id number] Referrals: SALLY MAYER MD [Staff Physician] - 3-5 Days Forms: Accompanied Note, Work/School Release Form(ED)
[2022-01-12 12:36] LABS: Bilirubin,Urine NEG (Negative); Blood,Urine MOD (Negative); Color,Urine Yellow (Yellow); Mucus,Urine FEW /HPF; Protein,Urine <15 mg/dL mg/dL (Negative); Urobilinogen,Urine < 2.0 mg/dL (<2.0)
--- NOTE | 2022-01-12 13:15 | Ultrasound Report ---
ULTRASOUND OBSTETRIC Indication: 18 weeks , lower abdominal pain and fluid Findings: There is a single intrauterine . BPD = 4 cm = 18 weeks, 2 day(s). Head circumference = 15.7 cm = 18 weeks, 4 day(s). Abdominal circumference = 14.3 cm = 19 weeks, 4 day(s). Femur length = 3.0 cm = 19 weeks, 1 day(s). heart rate is 141 beats per minute. Estimated weight is 283 grams position is breech. Cervix appears closed. movement is present. Placenta is posterior Amniotic fluid volume appears normal. 10.6 cm Maternal adnexa appear normal. Impression: 1. Single living intrauterine with estimated sonographic age of 18 weeks, 6 day(s). 2. No sonographic abnormality identified. Signer Name: Garrett Mike MD Signed: 01/12/2022 1:11 PM Workstation Name: [id number]
[2022-01-12 13:38] LABS: Basophils % (Auto) 0.4 % (0.0-1.8); Eosinophils # (Auto) 0.3 K/mm3 (0.0-0.4); Hematocrit 31.6 % (30.3-42.9); Hemoglobin 10.6 gm/dl (10.1-14.3); Lymphocytes % (Auto) 23.5 % (13.4-35.0); Mean Corpuscular HGB Conc 34 % (30-34); Mean Corpuscular Volume 85 fl (79-97); Monocytes # (Auto) 0.7 K/mm3 (0.0-0.8); Monocytes % (Auto) 8.5 % (0.0-7.3); Platelet Count 238 K/mm3 (140-440); Red Cell Distribution Width 14.7 % (13.2-15.2)
[2022-01-12 14:00] LABS: Alanine Aminotransferase 12 units/L (7-56); Albumin 3.6 g/dL (3.9-5); Blood Urea Nitrogen 6 mg/dL (7-17); Calcium 9.1 mg/dL (8.4-10.2); Hemolysis Index 0
[2022-01-12 14:02] LABS: BUN/Creatinine Ratio 12; Bilirubin,Direct < 0.2 mg/dL (0-0.2)
[2022-01-12 14:51] VITALS: BP 117/65
== END 2022-01-12 14:52 | disposition home or self-care (01) ==
LOC: ED 11:40
DX: O26.892 Other specified pregnancy related conditions, second trimester (principal); R10.30 Lower abdominal pain, unspecified; Z3A.18 18 weeks gestation of pregnancy
CPT/HCPCS: 36415; 76805; 80048; 80076; 81001; 84702; 85025; 99284; J7030; Q0162

== ENCOUNTER 2022-04-05 09:47 | Outpatient (CLI) | payer BC, MEDICAID ==
[2022-04-05 11:09] VITALS: BP 126/72
[2022-04-05] MEDS ORDERED: LACTATED RINGERS 500 ML IV ONE (11:18)
[2022-04-05] MEDS ORDERED: ACETAMINOPHEN 500 MG TAB PO ONE (11:48)
[2022-04-05 13:06] LABS: Bilirubin,Urine NEG (Negative); Blood,Urine SM (Negative); Color,Urine Yellow (Yellow); Mucus,Urine 1+ /HPF; Protein,Urine <15 mg/dL mg/dL (Negative)
[2022-04-05] MEDS ORDERED: ACETAMINOPHEN 500 MG TAB ONE (14:39)
== END 2022-04-05 19:20 | disposition home or self-care (01) ==
LOC: TRG 09:47 → APU 09:49 → TRG 19:20
PROVIDERS: ATTEND Obstetrics & Gynecology
DX: Z34.93 Encounter for supervision of normal pregnancy, unspecified, third trimester (principal); Z3A.30 30 weeks gestation of pregnancy
CPT/HCPCS: 36415; 59025; 81001; 82731

== ENCOUNTER 2022-04-19 15:07 | Outpatient (CLI) | payer BC, MEDICAID ==
[2022-04-19 17:48] LABS: Bilirubin,Urine NEG (Negative); Blood,Urine LG (Negative); Color,Urine Yellow (Yellow); Protein,Urine <15 mg/dL mg/dL (Negative); Urobilinogen,Urine < 2.0 mg/dL (<2.0)
[2022-04-19 17:53] LABS: Calcium Oxalate Crystals,Urine 3+; Mucus,Urine 3+ /HPF
[2022-04-19 18:03] VITALS: BP 100/53
== END 2022-04-19 18:45 | disposition home or self-care (01) ==
LOC: TRG 15:07 → APU 15:09 → TRG 18:45
PROVIDERS: ATTEND Obstetrics & Gynecology
DX: O26.893 Other specified pregnancy related conditions, third trimester (principal); M54.50 Low back pain, unspecified; R10.2 Pelvic and perineal pain; Z3A.32 32 weeks gestation of pregnancy
CPT/HCPCS: 59025; 81001

== ENCOUNTER 2022-05-11 01:10 | Outpatient (CLI) | payer BC, MEDICAID ==
[2022-05-11 01:32] VITALS: BP 107/56
== END 2022-05-11 03:09 | disposition home or self-care (01) ==
LOC: TRG 01:10 → APU 01:11 → TRG 03:09
PROVIDERS: ATTEND Obstetrics & Gynecology
DX: O47.03 False labor before 37 completed weeks of gestation, third trimester (principal); Z3A.35 35 weeks gestation of pregnancy
CPT/HCPCS: 59025

== ENCOUNTER 2022-06-06 06:05 | Inpatient (IN) | payer BC, MEDICAID ==
--- NOTE | 2022-06-05 21:41 | History and Physical Report ---
History of Present Illness Date of examination: 05/30/22 Date of admission: 06/06/2022 Chief complaint: repeat section History of present illness: Patient is a at 39w2d presenting for repeat section with bilateral salpingectomy. Voices no complaints. +FM. [place] contractions. Denies vaginal bleeding and leakage of fluid. Past History Past Medical History: no pertinent history Past Surgical History: section Family/Genetic History: diabetes, hypertension Social history: no significant social history - Obstetrical History Expected Date of Delivery: 06/11/22 Actual Gestation: 39 Week(s) 2 Day(s) : 5 Para: 4 Hx # Term Pregnancies: 3 Number of Pregnancies: 1 (twin delivery with IUFD of twin A) Spontaneous Abortions: 0 Induced : 0 Number of Living Children: 4 Medications and Allergies Allergies Allergy/AdvReac Type Severity Reaction Status Date / Time No Known Allergies Allergy Verified 02/15/14 06:06 Home Medications Medication Instructions Recorded Confirmed Last Taken Type Ferrous Sulfate [Feosol 325 MG tab] 325 mg PO BID #60 tablet 02/16/14 05/12/18 05/11/18 Rx Ibuprofen [Motrin 600 MG tab] 800 mg PO Q6H PRN #30 tablet 02/16/14 05/12/18 05/11/18 Rx Prenat 115/Iron Fum/Folic/Dss 1 each PO DAILY #30 tablet 02/16/14 05/12/18 05/11/18 Rx [ 19 Tablet] Ferrous Sulfate [Feosol 325 MG tab] 325 mg PO BID #60 tablet 05/11/18 Unknown Rx Ibuprofen [Motrin 800 MG tab] 800 mg PO Q6H PRN #30 tablet 05/11/18 Unknown Rx oxyCODONE /ACETAMINOPHEN [Percocet 1 - 2 tab PO Q4H PRN #30 tablet 05/11/18 Unknown Rx 5/325 mg] Review of Systems All systems: negative - Physical Exam Abdomen: Positive: normal appearance Extremities: Results Result Diagrams: 06/06/22 06:20 All other labs normal. Assessment and Plan To OR for RCS with bilateral salpingectomy Risks of procedure reviewed including pain, bleeding, infection, damage to surrounding tissues and structures, need for further procedures Consents signed Ancef 2 g preoperatively WIll need MMR - Patient Problems (1) Rubella non-immune status, antepartum Current Visit: No Status: Acute (2) GBS carrier Current Visit: No Status: Acute (3) History of delivery Current Visit: No Status: Acute (4) 39 weeks gestation of Current Visit: No Status: Acute (5) Sterilization Current Visit: No Status: Acute
[~2022-06-06 06:05] MED LIST: BICITRA ORAL LIQD 30ML PO ONE; FAMOTIDINE 20 MG/2 ML INJ IV ONE; LACTATED RINGERS 1,000 ML IV SCH; METOCLOPRAMIDE 10 MG/2 ML INJ IV ONE; OXYTOCIN DRIP 30 UNITS/500 ML BAG IV SCH; ceFAZolin/Water 2 GM/20 ML 2 GM/20 ML SYRINGE IV NR
[2022-06-06 06:52] LABS: Basophils % (Auto) 0.5 % (0.0-1.8); Eosinophils # (Auto) 0.3 K/mm3 (0.0-0.4); Eosinophils % (Auto) 3.7 % (0.0-4.3); Hematocrit 30.7 % (30.3-42.9); Hemoglobin 10.3 gm/dl (10.1-14.3); Lymphocytes % (Auto) 23.8 % (13.4-35.0); Mean Corpuscular HGB Conc 34 % (30-34); Mean Corpuscular Volume 82 fl (79-97); Monocytes # (Auto) 0.7 K/mm3 (0.0-0.8); Monocytes % (Auto) 8.5 % (0.0-7.3); Platelet Count 220 K/mm3 (140-440); Red Blood Count 3.76 M/mm3 (3.65-5.03); Red Cell Distribution Width 14.5 % (13.2-15.2)
--- NOTE | 2022-06-06 07:36 | Anesthesia Consultation ---
Anesthesia Consult and Med Hx - Airway Anesthetic Teeth Evaluation: Good ROM Head & Neck: Adequate Mental/Hyoid Distance: Adequate Mallampati Class: Class II Intubation Access Assessment: Probably Good - Pulmonary Exam CTA: Yes - Pre-Operative Health Status ASA Pre-Surgery Classification: ASA3 Proposed Anesthetic Plan: Spinal Nerve Block: TAP - Pulmonary Hx Smoking: No Hx Asthma: No Hx Respiratory Symptoms: No SOB: No COPD: No Home Oxygen Therapy: No Hx Pneumonia: No Hx Sleep Apnea: Yes (just started with CPAP at home. ) - Cardiovascular System Hx Hypertension: No Hx Coronary Artery Disease: No Hx Heart Attack/AMI: No Hx Angina: No Hx Percutaneous Transluminal Coronary Angioplasty (PTCA): No Hx Cardia Arrhythmia: No Hx Pacemaker: No Hx Internal Defibrillator: No Hx Valvular Heart Disease: No Hx Heart Murmur: No Hx Peripheral Vascular Disease: No - Central Nervous System Hx Neuromuscular Disorder: No Hx Seizures: No CVA: No Hx Back Pain: No Hx Psychiatric Problems: No - Gastrointestinal Hx Ulcer: No Hx Gastroesophageal Reflux Disease: No - Endocrine Hx Renal Disease: No Hx End Stage Renal Disease: No Hx Cirrhosis: No Hx Liver Disease: No Hx Insulin Dependent Diabetes: No Hx Non-Insulin Dependent Diabetes: No Hx Thyroid Disease: No Hx Hypothyroidism: No Hx Hyperthyroidism: No - Hematic Hx Anemia: Yes Hx Sickle Cell Disease: No - Other Systems Hx Alcohol Use: No Hx Substance Use: No Hx Cancer: No Hx Obesity: Yes
--- NOTE | 2022-06-06 07:36 | Anesthesia Day of Surgery ---
Anesthesia Day of Surgery - Day of Surgery Patient Examined: Yes Patient H&P Reviewed: Yes Patient is NPO: Yes Beta Blockers: No
[2022-06-06] MEDS ORDERED: ePHEDrine SULFATE 50 MG/1 ML INJ ONE (07:46)
[2022-06-06] MEDS ORDERED: HYDROmorphone 1 MG/1 ML INJ IV PRN (08:00)
[2022-06-06] MEDS ORDERED: NALOXONE 0.4 MG/1 ML INJ IV PRN ×2 (08:00→17:00)
[2022-06-06] MEDS ORDERED: PROMETHAZINE 25 MG TAB PO PRN (09:00)
[2022-06-06] MEDS ORDERED: ONDANSETRON 4 MG/2 ML INJ IV PRN ×2 (09:00→17:00)
[2022-06-06] MEDS ORDERED: PROMETHAZINE 25 MG RECT SUPP PR PRN (09:00)
[2022-06-06] MEDS ORDERED: BICITRA ORAL LIQD 30ML ONE (12:01)
[2022-06-06] MEDS ORDERED: ceFAZolin/Water 2 GM/20 ML 2 GM/20 ML SYRINGE IV ONE (12:01)
[2022-06-06] MEDS ORDERED: FAMOTIDINE 20 MG/2 ML INJ IV ONE (12:02)
[2022-06-06] MEDS ORDERED: METOCLOPRAMIDE 10 MG/2 ML INJ ONE (12:02)
[2022-06-06] MEDS ORDERED: ceFAZolin/STERILE WATER 2 GM/20 ML SYRINGE IV ONE (12:40)
[2022-06-06] MEDS ORDERED: WATER FOR IRRIG STERILE 1,500 ML BOTTLE IR ONE (12:40)
[2022-06-06] MEDS ORDERED: SODIUM CHLORIDE 0.9% IRR 1,500 ML BOTTLE IR ONE (12:40)
--- NOTE | 2022-06-06 14:02 | Operative Report ---
Operative Report Operative Report: Date of Procedure: June 06, 2022 Preoperative diagnosis: IUP @39 weeks and 2 days, history of delivery, desire for permanent sterilization Postoperative diagnosis: same, s/p repeat section Procedure: Low transverse section and bilateral salpingectomy Surgeon: Izzy Sanchez MD Division Merchandise Manager: GILBERTO Anesthesia: Spinal Complications: none QBL: 676 ml IV Fluids: 1200 ml UOP: 150 ml, clear urine at the end of procedure Indications: History of section Findings: 3100 g female infant in left occiput posterior position cephalic presentation with Apgars 8 & 9 Amniotic fluid clear Uterus with 3 cm posterior fibroid multiple small subcentimeter fibroids noted along the serosa Fallopian tubes normal in appearance bilaterally Ovaries normal in appearance bilaterally Procedure: The patient was taken to the operating room where epidural anesthesia was found to be adequate. 2 g Ancef was given prior to the procedure. She was then prepared and draped in the usual sterile fashion in the dorsal supine position with a leftward tilt. A Pfannenstiel skin incision was made with the scalpel and carried through to the underlying layer of fascia with the bovie. The fascia was incised in the midline and the incision extended laterally. The superior aspect of the fascial incision was then grasped with the Eli's clamps, elevated, and the underlying rectus muscles dissected off bluntly and with sharp dissection using curved Woods scissors. Attention was then turned to the inferior aspect of this incision which, in a similar fashion, was grasped, tented up with the Eli clamps, and the rectus was dissected off bluntly and with sharp dissection. The rectus muscles were then in the midline, and the peritoneum identified and entered sharply using a scalpel. The peritoneal incision was then extended superiorly and inferiorly with good vi sualization of the bladder. The bladder blade was then inserted and the vesicouterine peritoneum identified, grasped with the pick ups, and entered sharply with the Metzenbaum scissors. This incision was then extended laterally and the bladder flap created digitally. The bladder blade was then reinserted and the lower uterine segment incised in a transverse fashion with the scalpel. The uterine incision was then extended laterally digitally. The bladder blade was then removed and the was delivered via LOP position. Nuchal cord reduced. The nose and mouth were suctioned with the bulb suction and the cord clamped and cut. The infant was handed off to the waiting pediatricians.The placenta was then removed; the uterus exteriorized and cleared of all clots and debris. The uterine incision was repaired with 0 vicryl in a running locked fashion to obtain excellent hemostasis. An imbrication layer was done giving excellent hemostasis. Attention was then turned to the fallopian tubes. The right fallopian tube was grasped with Fred clamps. The mesosalpinx was clamped using a Brandy clamp and ligated using the Bovie cautery. The tube was transected at the cornua. The remaining mesosalpinx was cauterized and hemostasis achieved. The left tube was treated in a similar manner. Uterus returned to the abdomen. The rectus muscle was reapproximated with 2-0 vicryl. The fascia was reapproximated with 0 vicryl in a running fashion. Subcutaneous layer reapproximated with interrupted sutures of 2-0 vicryl. The skin was closed with 4-0 monocryl subcuticular stitch and the incision sealed with Dermabond.The patient tolerated the procedure well. Sponge, lap, needle counts correct X 2. The patient was taken to the recovery room in a stable condition.
[2022-06-06] MEDS ORDERED: LANOLIN/ZINC/DIMETHICONE (LANSINOH) 7 GM TP PRN (16:30)
[2022-06-06] MEDS ORDERED: WITCH HAZEL/ GLYCERIN PAD TP PRN (16:30)
[2022-06-06] MEDS ORDERED: LACTATED RINGERS 1,000 ML IV SCH (16:45)
[2022-06-06] MEDS ORDERED: SIMETHICONE 80 MG CHEW TAB PO PRN (17:00)
[2022-06-06] MEDS ORDERED: OXYTOCIN DRIP 30 UNITS/500 ML BAG IV SCH (17:00)
[2022-06-06] MEDS: MORPHINE 4 MG/1 ML INJ IV PRN ×2 (18:01→22:18)
[2022-06-06] MEDS: KETOROLAC 30 MG/1 ML INJ IV SCH (22:18)
[2022-06-07] MEDS: oxyCODONE /ACETAMINOPHEN 5-325MG TAB PO PRN ×3 (02:34→18:19)
[2022-06-07 04:23] LABS: Hematocrit 26.8 % (30.3-42.9); Hemoglobin 8.9 gm/dl (10.1-14.3)
[2022-06-07] MEDS: KETOROLAC 30 MG/1 ML INJ IV SCH ×2 (05:49→12:41)
--- NOTE | 2022-06-07 08:00 | Progress Note ---
Assessment and Plan A: 31 y.o. s/p rpt . POD # 1. - Patient Problems (1) delivery delivered Onset Date: ~05/11/18 Current Visit: No Status: Acute Plan to address problem: Continue with care. Encourage ambulation. Encourage IS use. Advance diet to regular this AM. Anticipate discharge home on 06/08. Subjective - Subjective Date of service: 06/07/22 Principal diagnosis: s/p rpt , POD 1 Interval history: Pt doing well. States that she is hungry. Asking for breakfast. Patient reports: appetite normal, voiding normally, pain well controlled, flatus, ambulating normally Basye: doing well Objective - Vital Signs Latest vital signs: Vital Signs Temp Pulse Resp BP BP Pulse Ox Pulse Ox 06/07/22 05:45 98.0 F 81 20 104/68 99 06/07/22 01:15 98.3 F 88 20 128/62 99 06/06/22 20:15 98.0 F 78 20 102/63 99 06/06/22 19:50 98 06/06/22 18:01 20 06/06/22 15:25 97.7 F 78 20 116/71 100 100 06/06/22 14:45 98.4 F 77 19 114/69 100 06/06/22 14:30 80 15 118/70 100 06/06/22 14:15 80 14 113/71 99 06/06/22 14:10 90 9 L 107/72 100 06/06/22 14:05 95 H 13 116/71 100 06/06/22 14:00 88 22 113/55 99 06/06/22 13:57 97.7 F 93 H 12 107/78 100 06/06/22 12:09 87 115/68 96 06/06/22 12:04 95 H 96 06/06/22 11:59 93 H 97 06/06/22 11:57 88 93 06/06/22 11:54 101 H 97 06/06/22 11:49 90 96 06/06/22 11:47 85 119/74 06/06/22 11:44 109 H 100 06/06/22 11:39 84 98 06/06/22 11:34 92 H 97 06/06/22 11:29 84 99 06/06/22 11:24 87 99 06/06/22 11:19 87 98 06/06/22 11:14 88 98 06/06/22 11:09 91 H 97 06/06/22 11:04 89 96 06/06/22 10:59 90 98 06/06/22 10:54 81 97 06/06/22 10:52 95 H 89 06/06/22 10:49 97 H 98 06/06/22 10:44 87 97 06/06/22 10:39 85 96 06/06/22 10:34 95 H 98 06/06/22 10:29 91 H 99 06/06/22 10:26 93 H 111/61 06/06/22 10:24 94 H 98 06/06/22 10:14 88 98 06/06/22 10:09 82 97 06/06/22 10:04 77 97 06/06/22 09:59 78 98 06/06/22 09:54 101 H 98 06/06/22 09:44 92 H 97 06/06/22 09:39 86 99 06/06/22 09:34 94 H 99 06/06/22 09:29 81 97 06/06/22 09:24 77 99 06/06/22 09:19 82 97 06/06/22 09:14 79 97 06/06/22 09:09 81 97 06/06/22 09:04 90 98 06/06/22 08:59 79 96 06/06/22 08:54 83 97 06/06/22 08:49 72 100 06/06/22 08:44 78 98 06/06/22 08:41 78 93 06/06/22 08:39 80 96 06/06/22 08:35 77 94 06/06/22 08:34 71 96 06/06/22 08:30 85 94 06/06/22 08:29 83 97 06/06/22 08:28 98.2 F 16 06/06/22 08:24 79 97 06/06/22 08:19 90 96 06/06/22 08:14 79 97 06/06/22 08:09 79 97 06/06/22 08:04 76 96 06/06/22 07:59 78 99 Intake and Output 06/06/22 06/07/22 06/07/22 22:59 06:59 14:59 Intake Total 480 480 Output Total 800 1600 Balance -320 -1120 Intake: Oral 480 480 Output: Urine 800 1600 Indwelling Catheter 800 1000 Void 600 Other: Total, Intake Amount 240 240 Total, Output Amount 800 600 # Voids Void 2 - Exam Cardiovascular: Present: Regular rate Lungs: Present: Normal air movement Abdomen: Present: normal appearance, soft Vulva: both: normal Uterus: Present: normal, other (Light lochia rubra noted.) Extremities: Present: normal Incision: Present: dressed (No drainage noted on dressing. ) - Labs Labs: Abnormal lab results 06/07/22 Range/Units 04:04 Hgb 8.9 L (10.1-14.3) gm/dl Hct 26.8 L (30.3-42.9) %
[2022-06-07] MEDS: FERROUS SULFATE 325 MG TAB PO SCH (10:27)
[2022-06-07] MEDS: PRENATAL VIT27-FE FUMARATE-FOLIC ACID VIT TAB PO SCH (10:27)
[2022-06-07] MEDS ORDERED: MEASLES, MUMPS & RUBELLA 12,500 UNIT/0.5 ML VACCINE SUB-Q ONE (13:00)
[2022-06-07] MEDS: IBUPROFEN 800 MG TAB PO SCH (21:53)
[2022-06-08] MEDS: oxyCODONE /ACETAMINOPHEN 5-325MG TAB PO PRN ×2 (02:19→12:22)
[2022-06-08] MEDS: IBUPROFEN 800 MG TAB PO SCH ×2 (06:06→12:25)
--- NOTE | 2022-06-08 09:21 | Discharge Summary ---
Providers - Providers Date of Admission: 06/06/22 06:05 Date of discharge: 06/08/22 Attending physician: VIRA DEL REAL MD Primary care physician: KARLA SORENSEN Hospitalization Reason for admission: section Delivery: Procedure: repeat low transverse Episiotomy: none Laceration: none Incision: normal, dry, intact Other procedures: none complications: none Discharge diagnosis: IUP at term delivered [place] baby: female Hospital course: S: Pt doing well. Ambulating, voiding, and passing flatus okay. O: VSS. Adequate I&O's. Minimal vaginal bleeding. Incision open to air. Steri strips intact. No s/sx of infection or drainage noted. H/H 8.9/26.8, asymptomatic anemia of delivery. A: 31 y.o. s/p rpt . In good condition . P: Discharge home with instructions. Pt to keep scheduled incision check in the office in 1 week. Condition at discharge: Good Disposition: 01 HOME / SELF CARE / HOMELESS - Discharge Diagnoses (1) delivery delivered Status: Acute Comment: RTO 1 week postop visit Plan - Discharge Medications Prescriptions: Docusate Sodium [Colace] 100 mg PO BID #60 capsule Lidocain2.5%/Prilocai2.5% [Emla] 1 applic TP ONCE #1 tube Ferrous Sulfate [Feosol 325 MG tab] 325 mg PO QDAY #30 tablet Ibuprofen [Motrin 800 MG tab] 800 mg PO Q8HR #30 tablet oxyCODONE /ACETAMINOPHEN [Percocet 5/325] 1 tab PO Q6HR PRN #20 tablet PRN Reason: Pain Vit-Fe Fumar-FA [ Vitamin] 1 tab PO QDAY #30 tablet - Provider Discharge Summary Activity: routine, no sex for 6 weeks, no heavy lifting 4 weeks, no strenuous exercise Diet: routine Instructions: routine Additional instructions: [] Smoking cessation referral if applicable(refer to patient education folder for contact #) [] Refer to [facility] Booklet Call your doctor immediately for: * Fever > 100.5 * Heavy vaginal bleeding ( >1 pad per hour) * Severe persistent headache * Shortness of breath * Reddened, hot, painful area to leg or breast * Drainage or odor from incision. * Keep incision clean and dry at all times and follow doctor's instructions regarding bathing/showering - Follow up plan Follow up: KARLA SORENSEN MD [Primary Care Provider] - 7 Days VIRA DEL REAL MD [Staff Physician] - 7 Days (- Congratulations on the of your baby girl! - Thank you for allowing us to take care of you! - Please keep your scheduled incision check in the office in 1 week. - Should you have any questions or concerns after discharge, please do not hesitate to call the office at . )
[2022-06-08] MEDS: PRENATAL VIT27-FE FUMARATE-FOLIC ACID VIT TAB PO SCH (12:23)
[2022-06-08] MEDS: FERROUS SULFATE 325 MG TAB PO SCH (12:23)
[2022-06-08 13:23] VITALS: BP 132/83
== END 2022-06-08 15:55 | disposition home or self-care (01) | DRG 785 ==
LOC: APU 06:05 → OB 15:14
PROVIDERS: ADMIT Student in an Organized Health Care Education/Training Program; ATTEND Student in an Organized Health Care Education/Training Program
PROC: 10D00Z1 Extraction of Products of Conception, Low, Open Approach (ICD-10-PCS; principal; 2022-06-06)
PROC: 0UB70ZZ Excision of Bilateral Fallopian Tubes, Open Approach (ICD-10-PCS; 2022-06-06)
PROC: 3E0134Z Introduction of Serum, Toxoid and Vaccine into Subcutaneous Tissue, Percutaneous Approach (ICD-10-PCS; 2022-06-07)
DX: O34.211 Maternal care for low transverse scar from previous cesarean delivery (principal); Z3A.39 39 weeks gestation of pregnancy; Z37.0 Single live birth; Z20.822 Contact with and (suspected) exposure to COVID-19; Z23 Encounter for immunization; O99.824 Streptococcus B carrier state complicating childbirth; O90.81 Anemia of the puerperium; Z30.2 Encounter for sterilization; O69.81X0 Labor and delivery complicated by cord around neck, without compression, not applicable or unspecified
CPT/HCPCS: 36415; 85014; 85018; 85025; 86850; 86900; 86901; G0378; J3490; J0690; J1885; J2270; J2590; J2765; J7120; U0003